=== PATIENT | female | born 1950 | race Caucasian/White ===

== ENCOUNTER 2023-09-24 12:09 | Inpatient (IN) | payer MEDICARE ==
[2023-09-24] MEDS ORDERED: TORAdol 30 mg Injection ONE (12:50)
[2023-09-24] MEDS: TORAdol 30 mg Injection IM ONE (12:51)
[2023-09-24] MEDS: TORAdol 30 mg Injection IV ONE (12:52)
--- NOTE | 2023-09-24 12:59 | ERPHSYRPT ---
- History of Present Illness Time Seen by Provider: 09/24/23 12:56 Source: patient, family Exam Limitations: no limitations Patient Subjective Stated Complaint: Fall- Right Triage Nursing Assessment: Patient brought into ED per w/c and transferred to bed with assist of 1. Patient A+O X3. Patient's skin pink, warm and dry. Patient complains of right hip/pelvic pain 10/10 when moving or ambulating. Patient fell as she was attempting to walk over a net that is low to the ground and landed on right side. Patient has small bruise noted to right hand palm. Small abrasion noted to right knee. Right leg noted to be shorter and external rotation. Physician History: atient complains of right hip/pelvic pain 10/10 when moving or ambulating. Patient fell as she was attempting to walk over a net that is low to the ground and landed on right side. Patient has small bruise noted to right hand palm. Small abrasion noted to right knee. Right leg noted to be shorter and external rotation. Denies any other injury Occurred: just prior to arrival Reason for Fall: tripped Injuries/Pain Location: pelvis, lower extremity Loss of Consciousness: no loss of consciousness Quality: sharpness Severity of Pain-Max: moderate Severity of Pain-Current: moderate Modifying Factors: Improves With: nothing Associated Symptoms (Fall): denies symptoms Body Map: 1 - area of pain Allergies/Adverse Reactions: benzonatate Allergy (Verified 09/24/23 12:31) meperidine [From Demerol] Allergy (Verified 09/24/23 12:31) Sulfa (Sulfonamide Antibiotics) Adverse Reaction (Verified 09/24/23 12:31) Home Medications: Amlodipine Besylate 1 tab PO DAILY 09/24/23 [History] Aspirin 81 gm Chew [Baby Aspirin 81 mg Chew] 1 tab PO DAILY 09/24/23 [History] Losartan Potassium 50 mg [Cozaar 50 MG] 1 tab PO DAILY 09/24/23 [History] Metoprolol Succinate 50 mg [Toprol Xl 50 MG] 1 tab PO DAILY 09/24/23 [History] Hx Influenza Vaccination/Date Given: Yes Hx Pneumococcal Vaccination/Date Given: Yes Immunizations Up to Date: Yes Travel Risk - International Travel Have you traveled outside of the country in past 3 weeks: No - Emerging Infectious Disease Are you exhibiting symptoms associated with any current EIDs: No - Review of Systems Constitutional: No Symptoms Eyes: No Symptoms Ears, Nose, & Throat: No Symptoms Respiratory: No Symptoms Cardiac: No Symptoms Abdominal/Gastrointestinal: No Symptoms Genitourinary Symptoms: No Symptoms Musculoskeletal: Fall, Joint Pain (right hip) Skin: No Symptoms Neurological: No Symptoms Psychological: No Symptoms Endocrine: No Symptoms Hematologic/Lymphatic: No Symptoms Immunological/Allergic: No Symptoms - Past Medical History Pertinent Past Medical History: Yes Neurological History: No Pertinent History ENT History: No Pertinent History Cardiac History: No Pertinent History Respiratory History: No Pertinent History Endocrine Medical History: No Pertinent History Musculoskeletal History: No Pertinent History GI Medical History: No Pertinent History History: No Pertinent History Psycho-Social History: No Pertinent History Female Reproductive Disorders: No Pertinent History - Past Surgical History Past Surgical History: Yes Neuro Surgical History: No Pertinent History Cardiac: No Pertinent History Respiratory: No Pertinent History Gastrointestinal: No Pertinent History Genitourinary: No Pertinent History Musculoskeletal: No Pertinent History Female Surgical History: Hysterectomy, Section Other Surgical History: C- Section X 2. Bladder tuck - Social History Smoking Status: Never smoker Exposure to second hand smoke: No Drug Use: none - Nursing Vital Signs Nursing Vital Signs: Initial Vital Signs Temperature 97.1 F 09/24/23 12:17 Pulse Rate 70 09/24/23 12:17 Respiratory Rate 18 09/24/23 12:17 Blood Pressure 173/89 09/24/23 12:17 O2 Sat by Pulse Oximetry 99 09/24/23 12:17 Pain Scale Pain Intensity 10 - [place] Coma Score Best Eye Response ([place]): (4) open spontaneously Best Verbal Response ([place]): (5) oriented Best Motor Response ([place]): (6) obeys commands [place] Total: 15 - Physical Exam General Appearance: no apparent distress, alert Head Injury: no evidence of injury Eye Exam: PERRL/EOMI ENT Exam: airway nml Neck Exam: normal inspection, No tenderness Respiratory/Chest Exam: normal breath sounds, No chest tenderness, No respiratory distress Cardiovascular Exam: normal heart sounds, regular rate/rhythm Gastrointestinal Exam: soft, No tenderness, No distention, No guarding, No ecchymosis Back Exam: normal inspection, No vertebral tenderness Extremity Exam: normal inspection, pelvis stable, limited range of motion (right hip), bony point tenderness, hip tenderness, pain with movement, weight bearing (unable), No deformities, No motor deficit, No pulse deficit, No pedal edema, No sensory deficit Neurologic Exam: alert, oriented x 3, cooperative, sensation nml, No motor deficits Skin Exam: normal color, warm, dry SpO2: 99 - Course Nursing assessment & vital signs reviewed: Yes - Radiology Exams Pelvis X-ray Interpretation: Interpreted by me (right pubic rami fracture displaced), Reviewed by me Hip X-ray Interpretation: Interpreted by me (no hip fracture), Reviewed by me Ordered Tests: Active Orders 24 hr Category Date Time Status HIPS KARLA(2V) INCL PEL IF DONE Stat Exams 09/24/23 12:38 Ordered KNEE (3 VIEWS) Stat Exams 09/24/23 12:38 Ordered Medication Summary Discontinued Medications Generic Name Dose Route Start Last Admin Trade Name Linnette PRN Reason Stop Dose Admin Ketorolac Tromethamine 60 mg 09/24/23 12:49 09/24/23 12:51 Ketorolac Tromethamine 30 Mg/Ml Inj IM 09/24/23 12:50 Not Given STAT ONE Ketorolac Tromethamine 30 mg 09/24/23 12:51 09/24/23 12:52 Ketorolac Tromethamine 30 Mg/Ml Inj IV 09/24/23 12:52 30 mg STAT ONE Administration Ketorolac Tromethamine Confirm 09/24/23 12:50 Ketorolac Tromethamine 30 Mg/Ml Inj Administered 09/24/23 12:51 Dose 30 mg .ROUTE .STK-MED ONE - Progress Progress: unchanged, pain not gone completely Discussed with Dr.: Other (Ortho shader and toner, Telehospitalist shader and toner) Counseled pt/family regarding: diagnosis, need for follow-up, rad results Medical Desision Making - Independent Historian Additional History obtained from: Spouse - Diagnostic Testing Diagnostic test were ordered, analyzed, and reviewed by me: Yes Radiological Interpretation: Interpreted by me, Reviewed by me - Risk of complications The pt has a mod risk of morbidity or mortality based on: Need for minor surgical intervention in patient with know risk factors - Departure Departure Disposition: Observation Clinical Impression: Fracture of right superior pubic ramus Qualifiers: Encounter type: initial encounter Fracture type: closed Qualified Code(s): S32.511A - Fracture of superior rim of right pubis, initial encounter for closed fracture Condition: Fair Critical Care Time: Yes Critical Care Time(excluding separately billable procedures): Critical 30-74 mins Referrals: ROLAN OMALLEY DO [Primary Care Provider] - Follow up/PCP as directed Instructions: Preventing falls in adults Additional Instructions: Discharge/Care Plan ZANE GARNICA was seen on 09/24/23 in the Emergency Room. The patient was counseled regarding Diagnosis,Lab results, Imaging studies, need for follow up and when to return to the Emergency Room. Prescriptions given: Discharge Note I have spoken with the patient and/or caregivers. I have explained the patient's condition, diagnosis and treatment plan based on the information available to me at this time. I have answered the patient's and/or caregiver's questions and addressed any concerns. The patient and/or caregivers have as good understanding of the patient's diagnosis, condition and treatment plan as can be expected at this point. The vital signs have been stable. The patient's condition is stable and appropriate for discharge from the emergency department. The patient will pursue further outpatient evaluation with the primary care physician or other designated or consulting physician as outlined in the discharge instructions. The patient and/or caregivers are agreeable to this plan of care and follow-up instructions have been explained in detail. The patient and/or caregivers have received these instruction. The patient/and or caregivers are aware that any significant change in condition or worsening of symptoms should prompt an immediate return to this or the closest emergency department or call 911. ZANE GARNICA was seen on 09/24/23 n the Emergency Room. At that time you were treated for an emergent condition, during your visit Laboratory, Radiology and/or other procedures may have been ordered. It is very important that you follow-up with your Primary Care Physician ROLAN OMALLEY DO within the next 24-48 hours to review your Emergency Room visit and the final results of testing that was ordered. Some test results such as Urine Cultures, Blood Cu ltures, and other cultures if ordered will not be finalized for 24-48 hours. If you do not have a Primary Care Provider please call the medical records department at [phone] ext [phone] to obtain a copy of your results or you may sign into our patient portal to obtain these results by visiting us @ [email or web address] and completing the following steps: 1. Click on the Patient Portal link 2. Click the Patient Self Enrollment Link to complete the enrollment form and entering your 3. Once the enrollment form is completed you will receive an email with a t emporary ID and password at the email address you provided. 4. Next choose a user name and password. Your user name must be at least 4 characters long and your password must be at least 4 characters long. 5. Choose a security question from the list and provide your answer to the question. If you already have signed into the Health Portal you may access your Health Care Information 09/01 by the following steps: 1. Login to our website @ [email or web address] 2. Enter your original user name and password. FAQS The [facility] Portal is an online tool that contains your Lab Results, Radiology Reports, Visit History, Discharge Instructions and Health Summary Lab and Radiology Results will not be available for 72 hours on the portal. The Portal is a secure site, passwords are encryted and URLs are re-written so they cannot be copied and pasted. You and authorized family members are the only ones who can access your Portal. Also there is a timeout feature that protects your information if you leave the Portal page open. If you have technical difficulty please use the Contact Us link on the page this will allow you to submit any questions you have regarding the Portal or you may contact the Medical Record Department at [phone] ext [phone].
[2023-09-24] MEDS ORDERED: Zofran 4 MG/2 ML VIAL ONE (13:33)
[2023-09-24] MEDS ORDERED: SUBLIMAZE 100 MCG/2 ML ONE (13:34)
[2023-09-24] MEDS: SUBLIMAZE 100 MCG/2 ML IV ONE (13:35)
[2023-09-24] MEDS: Zofran 4 MG/2 ML VIAL IV ONE (13:35)
--- NOTE | 2023-09-24 14:49 | PCM.HP ---
<LISA TIERNEY - Last Filed: 09/24/23 15:00> History of Present Illness - Chief Complaint Chief Complaint: right hip pain Date: 09/24/23 History of Present Illness: is a 72 year old female with a pmhx of HTN who presented to ED 09/24/23 with complaints of right hip pain after a ground level fall at home. Patient states she was at her sons house who has a volley ball net on his asphalt driveway and her foot got caught in the net and fell to her right side. She was unable to bear weight on the right side and her pain level was 10/10 prompting her to the ED. In ED her vitals were stable. Displaced right pubic rami fracture noted on imaging per ED physician read. Ortho has been consulted with recommendations for observation and pain control, no surgical intervention. She was given Fentanyl 100mcg and Toradol 30mg, which has relieved her pain for the most part. She does have pain with positional changes and with weight bearing. Denies fever,cough, sob, cp, abdominal pain, RODRIGUEZ, dizziness, N/V/D. - Review of Systems Constitutional: No Symptoms Eyes: No Symptoms Ears, Nose, & Throat: No Symptoms Respiratory: No Symptoms Cardiac: No Symptoms Abdominal/Gastrointestinal: No Symptoms Genitourinary Symptoms: No Symptoms Musculoskeletal: Joint Pain (Right hip) Skin: No Symptoms Neurological: No Symptoms Psychological: No Symptoms Endocrine: No Symptoms Hematologic/Lymphatic: No Symptoms Medications & Allergies Home Medications: Home Medication List Amlodipine Besylate 1 tab PO DAILY 09/24/23 [History Confirmed 09/24/23] Aspirin EC 81 mg [Ecotrin 81 mg] 81 mg PO DAILY 09/24/23 [History Confirmed 09/24/23] Losartan Potassium 50 mg [Cozaar 50 MG] 1 tab PO DAILY 09/24/23 [History Confirmed 09/24/23] Metoprolol Succinate 50 mg [Toprol Xl 50 MG] 1 tab PO DAILY 09/24/23 [History Confirmed 09/24/23] Allergies/Adverse Reactions: Allergies Allergy/AdvReac Type Severity Reaction Status Date / Time benzonatate Allergy Verified 09/24/23 12:31 meperidine [From Demerol] AdvReac Nausea and Verified 09/24/23 13:31 Vomiting Sulfa (Sulfonamide AdvReac Verified 09/24/23 12:31 Antibiotics) - Past Medical History Past Medical History: Yes Neurological History: No Pertinent History ENT History: No Pertinent History Cardiac History: No Pertinent History, Hypertension Respiratory History: No Pertinent History Endocrine Medical History: No Pertinent History Musculoskelatal History: No Pertinent History GI Medical History: No Pertinent History History: No Pertinent History Pyscho-Social History: No Pertinent History Reproductive Disorders: No Pertinent History - Past Surgical History Past Surgical History: Yes Neuro Surgical History: No Pertinent History Cardiac History: No Pertinent History Respiratory Surgery: No Pertinent History GI Surgical History: No Pertinent History Genitourinary Surgical Hx: No Pertinent History Musculskeletal Surgical Hx: No Pertinent History Female Surgical History: Hysterectomy, Section Other Surgical History: C- Section X 2. Bladder tuck - Social History Smoking Status: Never smoker Exposure to second hand smoke: No Alcohol: Occasionally Drug Use: none - Social Determinants of Health Will the patient participate in the screening: Yes Do you worry about a steady place to live?: No Do you have any problems with any of the following?: No known problems In the past 12 months,have you had to go without utilities?: No Have you or anyone in your house had to go without enough: No Transportation Issues: No Has anyone in your support network made you feel unsafe?: No - Physical Exam Vital Signs: Vital Signs - 24 hr Temp Pulse Resp BP Pulse Ox 09/24/23 14:23 68 18 130/67 97 09/24/23 13:36 66 18 158/91 98 09/24/23 13:18 99 09/24/23 12:17 97.1 F 70 18 173/89 99 General Appearance: no apparent distress Neurologic Exam: alert, oriented x 3, cooperative Eye Exam: PERRL/EOMI Ears, Nose, Throat Exam: normal ENT inspection Neck Exam: normal inspection Respiratory Exam: normal breath sounds, lungs clear Cardiovascular Exam: regular rate/rhythm, normal heart sounds Gastrointestinal/Abdomen Exam: soft, normal bowel sounds Pelvic Exam: not done Rectal Exam: deferred Back Exam: normal inspection Extremity Exam: limited range of motion (RLE), tenderness (RLE) Results - Radiology Impressions Radiology Exams & Impressions: Radiology Procedures Category Date Time Status HIPS KARLA(2V) INCL PEL IF DONE Stat Exams 09/24/23 12:38 Taken Assessment/Plan (1) Fracture of right superior pubic ramus Current Visit: Yes Status: Acute Qualifiers: Encounter type: initial encounter Fracture type: closed Qualified Code(s): S32.511A - Fracture of superior rim of right pubis, initial encounter for closed fracture Assessment & Plan: -Ortho consulted, appreciate recs -Pain control -NWB -Monitor CBC -PT eval Code(s): S32.511A - FRACTURE OF SUPERIOR RIM OF RIGHT PUBIS, INIT FOR CLOS FX (2) Hypertension Current Visit: Yes Status: Acute Assessment & Plan: -Stable, continue home meds Code(s): I10 - ESSENTIAL (PRIMARY) HYPERTENSION (3) Ground-level fall Current Visit: Yes Status: Acute Assessment & Plan: -see fracture Code(s): W18.30XA - FALL ON SAME LEVEL, UNSPECIFIED, INITIAL ENCOUNTER Telemedicine Encounter - Telemedicine Encounter Telemedicine Encounter: The entirety of this encounter was performed via Telemedicine" <ARELY GALLO - Last Filed: 09/24/23 20:54> History of Present Illness - Chief Complaint History of Present Illness: is a 72 year old female. - Physical Exam Vital Signs: Vital Signs - 24 hr Temp Pulse Resp BP Pulse Ox 09/24/23 19:34 97.3 F 66 18 143/68 96 09/24/23 14:49 97.7 F 67 18 131/60 92 L 09/24/23 14:23 68 18 130/67 97 09/24/23 13:36 66 18 158/91 98 09/24/23 13:18 99 09/24/23 12:17 97.1 F 70 18 173/89 99 Results - Labs Lab/Micro Results: Lab Results-Last 24 Hours 09/24/23 09/24/23 Range/Units 15:30 15:30 WBC 12.9 H (4.0-10.5) x10^3/uL RBC 3.82 L (4.1-5.4) x10^6/uL Hgb 11.9 L (12.0-16.0) g/dL Hct 35.7 (35-47) % MCV 93.5 (78-100) fL MCH 31.2 (26-32) pg MCHC 33.3 (32-36) g/dL RDW 12.1 (11.5-14.0) % Plt Count 243 (150-450) x10^3/uL MPV 10.9 (7.5-11.0) fL Gran % 79.7 H (36.0-66.0) % Immature Gran % (Auto) 0.7 H (0.00-0.4) % Nucleat RBC Rel Count 0.0 (0.00-0.1) % Eos # (Auto) 0.04 (0-0.5) x10^3/uL Immature Gran # (Auto) 0.09 H (0.00-0.03) x10^3u/L Absolute Lymphs (auto) 1.49 (1.0-4.6) x10^3/uL Absolute Monos (auto) 0.91 (0.0-1.3) x10^3/uL Absolute Nucleated RBC 0.00 (0.00-0.01) x10^3u/L Lymphocytes % 11.6 L (24.0-44.0) % Monocytes % 7.1 (0.0-12.0) % Eosinophils % 0.3 (0.00-5.0) % Basophils % 0.6 (0.0-0.4) % Absolute Granulocytes 10.26 H (1.4-6.9) x10^3/uL Basophils # 0.08 (0-0.4) x10^3/uL Sodium 133 L (135-145) mmol/L Potassium 3.8 (3.5-5.1) mmol/L Chloride 101 (98-107) mmol/L Carbon Dioxide 26 (22-30) mmol/L Anion Gap 10.2 (5-15) MEQ/L BUN 17 (7-17) mg/dL Creatinine 0.81 (0.52-1.04) mg/dL Estimated GFR 78.0 ML/MIN Glucose 109 H (74-106) mg/dL Calcium 9.1 (8.4-10.2) mg/dL Total Bilirubin 0.40 (0.2-1.3) mg/dL AST 25 (14-36) U/L ALT 26 (0-35) U/L Alkaline Phosphatase 69 (38-126) U/L Serum Total Protein 6.9 (6.3-8.2) g/dL Albumin 3.7 (3.5-5.0) g/dL - Radiology Impressions Radiology Exams & Impressions: Radiology Procedures Category Date Time Status HIPS KRALA(2V) INCL PEL IF DONE Stat Exams 09/24/23 12:38 Completed Telemedicine Encounter - Telemedicine Encounter Telemedicine Encounter: The entirety of this encounter was performed via Telemedicine" YANIRA Encounter - YANIRA Encounter Attestation YANIRA Encounter Attestation: "IhroselynpersonallyskiarraandexZANE Delgadillo andhavediscussed pertinent aspects of their care with Lisa Foley agree with the history, physical exam (any modifications based on my personal exam will be noted below), assessment, and plan as outlined in original note. Please see immediately below for my summary of findings and additional assessment and plan along with any meaningful corrections/explanations to the Subjective/Objective portions of the YANIRA note will be noted." My portion of the encounter took place via telemedicine. -Patient with fall and right pubic ramus fracture with severe pain and inability to ambulate. Non operative management per ortho. Admitted for pain control and PT/OT eval.
[2023-09-24] MEDS ORDERED: SUBLIMAZE 100 MCG/2 ML IV PRN (14:54)
[2023-09-24 15:34] LABS: Absolute Neutrophil Ct (ANC) 10.26 x10^3/uL (1.4-6.9); BASOPHIL % 0.6 % (0.0-0.4); Basophil (Absolute #) 0.08 x10^3/uL (0-0.4); Eosinophil % 0.3 % (0.00-5.0); Eosinophil (Absolute #) 0.04 x10^3/uL (0-0.5); Hematocrit 35.7 % (35-47); Hemoglobin 11.9 g/dL (12.0-16.0); IMMATURE GRAN # 0.09 x10^3u/L (0.00-0.03); IMMATURE GRAN % 0.7 % (0.00-0.4); Lymphocyte (Absolute #) 1.49 x10^3/uL (1.0-4.6); Lymphocytes % 11.6 % (24.0-44.0); Mean Cell Volume 93.5 fL (78-100); Mean Corpuscular Hemoglobin 31.2 pg (26-32); Mean Corpuscular Hgb Concent. 33.3 g/dL (32-36); Mean Platelet Volume 10.9 fL (7.5-11.0); Monocyte (Absolute #) 0.91 x10^3/uL (0.0-1.3); Monocytes % 7.1 % (0.0-12.0); Neutrophil % 79.7 % (36.0-66.0); Platelet Count 243 x10^3/uL (150-450); Red Blood Count 3.82 x10^6/uL (4.1-5.4); Red Cell Distribution Width 12.1 % (11.5-14.0); White Blood Count 12.9 x10^3/uL (4.0-10.5)
[2023-09-24 15:46] LABS: ALBUMIN 3.7 g/dL (3.5-5.0); ANION GAP 10.2 MEQ/L (5-15); BILIRUBIN,TOTAL 0.4 mg/dL (0.2-1.3); Calcium 9.1 mg/dL (8.4-10.2); Creatinine 1 0.81 mg/dL (0.52-1.04); Potassium 3.8 mmol/L (3.5-5.1); Total Protein 6.9 g/dL (6.3-8.2)
[2023-09-24] MEDS: NORCO 5/325 MG PO PRN (17:58)
--- NOTE | 2023-09-24 19:32 | XRAY ---
Indication: Pain following fall. Comparison: None AP pelvis and 2 view left and right hip demonstrates mildly displaced right pubic symphysis fracture. Elsewhere osteopenia, mild lower lumbar degenerative changes, and pubic symphysis tacks. Comment: Fracture not reported by interpreting ER clinician. Telephone report was given to Dr. Orta at 1925 hrs. on September 24, 2023.
[2023-09-24] MEDS: Hydromorphone 1 mg/ml Injection IV PRN (20:31)
[2023-09-24] MEDS: Zofran 4 MG/2 ML VIAL IV PRN (20:31)
[2023-09-25 04:32] LABS: Absolute Neutrophil Ct (ANC) 5.64 x10^3/uL (1.4-6.9); BASOPHIL % 0.8 % (0.0-0.4); Basophil (Absolute #) 0.07 x10^3/uL (0-0.4); Eosinophil (Absolute #) 0.17 x10^3/uL (0-0.5); Hematocrit 33.9 % (35-47); Hemoglobin 11.2 g/dL (12.0-16.0); IMMATURE GRAN # 0.04 x10^3u/L (0.00-0.03); IMMATURE GRAN % 0.5 % (0.00-0.4); Lymphocytes % 21.9 % (24.0-44.0); Mean Cell Volume 93.9 fL (78-100); Mean Platelet Volume 11.2 fL (7.5-11.0); Monocyte (Absolute #) 0.87 x10^3/uL (0.0-1.3); Neutrophil % 64.8 % (36.0-66.0); Platelet Count 233 x10^3/uL (150-450); Red Blood Count 3.61 x10^6/uL (4.1-5.4); Red Cell Distribution Width 12.2 % (11.5-14.0); White Blood Count 8.7 x10^3/uL (4.0-10.5)
[2023-09-25 04:52] LABS: ALBUMIN 3.5 g/dL (3.5-5.0); ANION GAP 7.6 MEQ/L (5-15); BILIRUBIN,TOTAL 0.4 mg/dL (0.2-1.3); Creatinine 1 0.74 mg/dL (0.52-1.04); Potassium 3.9 mmol/L (3.5-5.1); Total Protein 6.5 g/dL (6.3-8.2)
[2023-09-25] MEDS: Dextrose 5%-NS IV Solution 1000 ML 1,000 ML IV SCH (08:23)
--- NOTE | 2023-09-25 09:38 | PCM.NOTE ---
Date and Time: 09/25/23 0929 Subjective Assessment: is a 72 year old female with a pmhx of HTN who presented to ED 09/24/23 with complaints of right hip pain after a ground level fall at home. Patient states she was at her sons house who has a volley ball net on his asphalt driveway and her foot got caught in the net and fell to her right side. She was unable to bear weight on the right side and her pain level was 10/10 prompting her to the ED. She has a displaced right pubic rami fracture noted on imaging per ED physician read. Ortho has been consulted with recommendations for observation and pain control, no surgical intervention. She does have pain with positional changes and with weight bearing. She is going to work with PT/OT today. She has a walker she is borrowing from a friend and it will not be available until tomorrow. Discussed pt case with Ortho. They recommend f/u in 2 -3 weeks, pain control, and PT/OT eval. Will need OP PT. She denies CP, SOB, Abd. pain, N/V/D. - Review of Systems Constitutional: No Fever, No Chills Eyes: No Symptoms Ears, Nose, & Throat: No Symptoms Respiratory: No Cough, No Short Of Breath Cardiac: No Chest Pain, No Edema, No Syncope Abdominal/Gastrointestinal: No Abdominal Pain, No Nausea, No Vomiting, No Diarrhea Genitourinary Symptoms: No Dysuria Musculoskeletal: Other (pelvic pain, RLE weakness), No Back Pain, No Neck Pain Skin: No Rash Neurological: No Dizziness, No Focal Weakness, No Sensory Changes Psychological: No Symptoms Endocrine: No Symptoms Hematologic/Lymphatic: No Symptoms Immunological/Allergic: No Symptoms Objective Exam General Appearance: no apparent distress, alert Neurologic Exam: alert, oriented x 3, cooperative, normal mood/affect, nml cerebellar function, sensation nml, No motor deficits Skin Exam: normal color, warm, dry Eye Exam: PERRL, EOMI, eyes nml inspection Ears, Nose, Throat Exam: normal ENT inspection, pharynx normal, moist mucous membranes Neck Exam: normal inspection, non-tender, supple, full range of motion Respiratory Exam: normal breath sounds, lungs clear, No respiratory distress Cardiovascular Exam: regular rate/rhythm, normal heart sounds, normal peripheral pulses Gastrointestinal/Abdomen Exam: soft, No tenderness, No mass Extremity Exam: normal inspection, normal range of motion, limited range of motion (RLE), tenderness (pelvis) Back Exam: normal inspection, normal range of motion, No CVA tenderness, No vertebral tenderness Pelvic Exam: deferred Rectal Exam: deferred Objective Data Vital Signs: Vital Signs - 24 hr Temp Pulse Resp BP Pulse Ox 09/25/23 06:52 97.5 F 63 18 126/71 96 09/25/23 04:00 97.8 F 62 16 137/76 93 L 09/24/23 23:57 97.8 F 62 18 132/72 96 09/24/23 19:34 97.3 F 66 18 143/68 96 09/24/23 14:49 97.7 F 67 18 131/60 92 L 09/24/23 14:23 68 18 130/67 97 09/24/23 13:36 66 18 158/91 98 09/24/23 13:18 99 09/24/23 12:17 97.1 F 70 18 173/89 99 Pain Assessment - Last Documented Pain Intensity 9 Pain Scale Used 0-10 Pain Scale Intake and Output: Intake & Output 09/22/23 09/23/23 09/24/23 09/25/23 11:59 11:59 11:59 11:59 Intake Total 3140 Output Total 1810 Balance 1330 Weight 75.3 kg Lab Results: Lab Results-Last 24 Hours 09/24/23 09/24/23 09/25/23 Range/Units 15:30 15:30 04:05 WBC 12.9 H 8.7 (4.0-10.5) x10^3/uL RBC 3.82 L 3.61 L (4.1-5.4) x10^6/uL Hgb 11.9 L 11.2 L (12.0-16.0) g/dL Hct 35.7 33.9 L (35-47) % MCV 93.5 93.9 (78-100) fL MCH 31.2 31.0 (26-32) pg MCHC 33.3 33.0 (32-36) g/dL RDW 12.1 12.2 (11.5-14.0) % Plt Count 243 233 (150-450) x10^3/uL MPV 10.9 11.2 H (7.5-11.0) fL Gran % 79.7 H 64.8 (36.0-66.0) % Immature Gran % (Auto) 0.7 H 0.5 H (0.00-0.4) % Nucleat RBC Rel Count 0.0 0.0 (0.00-0.1) % Eos # (Auto) 0.04 0.17 (0-0.5) x10^3/uL Immature Gran # (Auto) 0.09 H 0.04 H (0.00-0.03) x10^3u/L Absolute Lymphs (auto) 1.49 1.90 (1.0-4.6) x10^3/uL Absolute Monos (auto) 0.91 0.87 (0.0-1.3) x10^3/uL Absolute Nucleated RBC 0.00 0.00 (0.00-0.01) x10^3u/L Lymphocytes % 11.6 L 21.9 L (24.0-44.0) % Monocytes % 7.1 10.0 (0.0-12.0) % Eosinophils % 0.3 2.0 (0.00-5.0) % Basophils % 0.6 0.8 (0.0-0.4) % Absolute Granulocytes 10.26 H 5.64 (1.4-6.9) x10^3/uL Basophils # 0.08 0.07 (0-0.4) x10^3/uL Sodium 133 L (135-145) mmol/L Potassium 3.8 (3.5-5.1) mmol/L Chloride 101 (98-107) mmol/L Carbon Dioxide 26 (22-30) mmol/L Anion Gap 10.2 (5-15) MEQ/L BUN 17 (7-17) mg/dL Creatinine 0.81 (0.52-1.04) mg/dL Estimated GFR 78.0 ML/MIN Glucose 109 H (74-106) mg/dL Calcium 9.1 (8.4-10.2) mg/dL Total Bilirubin 0.40 (0.2-1.3) mg/dL AST 25 (14-36) U/L ALT 26 (0-35) U/L Alkaline Phosphatase 69 (38-126) U/L Serum Total Protein 6.9 (6.3-8.2) g/dL Albumin 3.7 (3.5-5.0) g/dL 09/25/23 Range/Units 04:05 WBC (4.0-10.5) x10^3/uL RBC (4.1-5.4) x10^6/uL Hgb (12.0-16.0) g/dL Hct (35-47) % MCV (78-100) fL MCH (26-32) pg MCHC (32-36) g/dL RDW (11.5-14.0) % Plt Count (150-450) x10^3/uL MPV (7.5-11.0) fL Gran % (36.0-66.0) % Immature Gran % (Auto) (0.00-0.4) % Nucleat RBC Rel Count (0.00-0.1) % Eos # (Auto) (0-0.5) x10^3/uL Immature Gran # (Auto) (0.00-0.03) x10^3u/L Absolute Lymphs (auto) (1.0-4.6) x10^3/uL Absolute Monos (auto) (0.0-1.3) x10^3/uL Absolute Nucleated RBC (0.00-0.01) x10^3u/L Lymphocytes % (24.0-44.0) % Monocytes % (0.0-12.0) % Eosinophils % (0.00-5.0) % Basophils % (0.0-0.4) % Absolute Granulocytes (1.4-6.9) x10^3/uL Basophils # (0-0.4) x10^3/uL Sodium 128 L (135-145) mmol/L Potassium 3.9 (3.5-5.1) mmol/L Chloride 96 L (98-107) mmol/L Carbon Dioxide 29 (22-30) mmol/L Anion Gap 7.6 (5-15) MEQ/L BUN 17 (7-17) mg/dL Creatinine 0.74 (0.52-1.04) mg/dL Estimated GFR 87.0 ML/MIN Glucose 112 H (74-106) mg/dL Calcium 9.0 (8.4-10.2) mg/dL Total Bilirubin 0.40 (0.2-1.3) mg/dL AST 24 (14-36) U/L ALT 22 (0-35) U/L Alkaline Phosphatase 70 (38-126) U/L Serum Total Protein 6.5 (6.3-8.2) g/dL Albumin 3.5 (3.5-5.0) g/dL Radiology Exams: Radiology Procedures Category Date Time Status HIPS KARLA(2V) INCL PEL IF DONE Stat Exams 09/24/23 12:38 Completed Assessment/Plan (1) Fracture of right superior pubic ramus Current Visit: Yes Status: Acute Qualifiers: Encounter type: initial encounter Fracture type: closed Qualified Code(s): S32.511A - Fracture of superior rim of right pubis, initial encounter for closed fracture Assessment & Plan: -Ortho consulted- discussed and agree with plan of care - Narcotic pain control- PRN, PO and IV - PT/OT eval - F/u 2-3 weeks OP with ortho - Hip/Pelvis XR: AP pelvis and 2 view left and right hip demonstrates mildly displaced right pubic symphysis fracture. Elsewhere osteopenia, mild lower lumbar degenerative changes, and pubic symphysis tacks. - D/C Mirza- placed in ER for required immobilization from trauma. - Apply ice pack PRN - weight bearing restriction per ortho - gait training BID per ortho Code(s): S32.511A - FRACTURE OF SUPERIOR RIM OF RIGHT PUBIS, INIT FOR CLOS FX (2) Ground-level fall Current Visit: Yes Status: Acute Assessment & Plan: - see above plan for Fracture of right superior pubic ramus Code(s): W18.30XA - FALL ON SAME LEVEL, UNSPECIFIED, INITIAL ENCOUNTER (3) Hyponatremia Current Visit: Yes Status: Chronic Assessment & Plan: - Pt reports chronic hyponatremia- likely SIADH - Na+ 128 - started D5NS @ 85 ml/hr - labs ordered, urine os and sodium, serum os, uric acid, and ADH - fluid restriction 1500 Code(s): E87.1 - HYPO-OSMOLALITY AND HYPONATREMIA (4) Hypertension Current Visit: Yes Status: Acute Assessment & Plan: -Stable, continue home meds VTE: SCD PPI: protonix Next of Kin: D/C plan: tomorrow Code status: full Code(s): I10 - ESSENTIAL (PRIMARY) HYPERTENSION
[2023-09-25] MEDS: Cozaar 50 MG PO SCH (09:48)
[2023-09-25] MEDS: Toprol Xl 50 MG PO SCH (09:48)
[2023-09-25] MEDS: NORVASC 5 MG PO SCH (09:49)
[2023-09-25] MEDS ORDERED: ENOXAPARIN SODIUM SQ SCH (10:00)
[2023-09-25] MEDS: Protonix 20MG Tablet PO SCH (12:26)
[2023-09-25] MEDS: Compazine 10 MG/2 ML IV PRN (16:42)
[2023-09-26 04:22] LABS: Absolute Neutrophil Ct (ANC) 12.41 x10^3/uL (1.4-6.9); BASOPHIL % 0.2 % (0.0-0.4); Basophil (Absolute #) 0.03 x10^3/uL (0-0.4); Eosinophil (Absolute #) 0 x10^3/uL (0-0.5); Hematocrit 34.4 % (35-47); Hemoglobin 11.8 g/dL (12.0-16.0); IMMATURE GRAN # 0.04 x10^3u/L (0.00-0.03); IMMATURE GRAN % 0.3 % (0.00-0.4); Lymphocyte (Absolute #) 0.52 x10^3/uL (1.0-4.6); Lymphocytes % 3.9 % (24.0-44.0); Mean Cell Volume 92.2 fL (78-100); Mean Corpuscular Hemoglobin 31.6 pg (26-32); Mean Corpuscular Hgb Concent. 34.3 g/dL (32-36); Monocyte (Absolute #) 0.49 x10^3/uL (0.0-1.3); Monocytes % 3.6 % (0.0-12.0); Platelet Count 218 x10^3/uL (150-450); Red Blood Count 3.73 x10^6/uL (4.1-5.4); White Blood Count 13.5 x10^3/uL (4.0-10.5)
[2023-09-26 04:35] LABS: ALBUMIN 3.2 g/dL (3.5-5.0); BILIRUBIN,TOTAL 1.3 mg/dL (0.2-1.3); Calcium 8.9 mg/dL (8.4-10.2); Creatinine 1 0.62 mg/dL (0.52-1.04); EST GLOMERULAR FILTRATION RATE 95.7 ML/MIN; Potassium 3.9 mmol/L (3.5-5.1); Total Protein 6.3 g/dL (6.3-8.2)
[2023-09-26 05:11] LABS: Slide Review 1 YES
--- NOTE | 2023-09-26 07:51 | CONS ---
CONSULT DATE: 09/25/2023 HISTORY: The patient seen and examined and her chart was reviewed. Miss Briana Ortiz is a 72-year-old female who tripped at home over equipment and fell sustaining an injury to her right pelvis. She was seen in the ER where superior and inferior pubic rami fractures were noted on the right and due to her pain; she was admitted for observation and pain control. She sustained no other injuries in the fall. She denies any numbness or tingling. PAST MEDICAL HISTORY: She has a medical history which is significant for hypertension, hypercholesterolemia. PAST SURGICAL HISTORY: She has a pertinent surgical history for history of two bladder slings. ALLERGIES: DEMEROL. SULFA ANTIBIOTICS. BENZONATATE. MEDICATIONS: She is currently taking Cozaar 50 mg daily, Norvasc 5 mg daily, Toprol XL 50 mg daily and baby aspirin a day. PHYSICAL EXAMINATION: Physical examination demonstrates that V[employer]ER is intact to both lower extremities. There is minimal tenderness to palpation along the right SI joint. No tenderness along the left SI joint. No tenderness in the lower lumbar spine. She does have good range of motion of both hips. She has tenderness to palpation over right superior and inferior pubic rami. No tenderness over the left pubic rami. Pulses are 2/4 at the dorsalis pedis and posterior tibia. Motor strength is 5/5. Sensory is intact to light touch. LAB DATA AND TESTS: X-rays dated 09/24/2023 showed minimally displaced right superior and inferior pubic rami fractures. There is also noted some degenerative changes in the lower lumbar spine. No evidence of fracture of the hip or acetabulum. IMPRESSION: Right superior and inferior pubic rami fractures. RECOMMENDATION AND PLAN: 1) The patient should have a course of physical therapy for gait training. Weight bearing as tolerated. 2) The patient should be fitted for a walker and wheelchair to have at home. 3) The patient should be observed for an ileus. 4) Follow up in the orthopedic clinic in three to four weeks. Thank you for allowing me to see this patient and participate in her care.
--- NOTE | 2023-09-26 08:08 | PCM.NOTE ---
Date and Time: 09/26/23801 Subjective Assessment: 09/25/23 is a 72 year old female with a pmhx of HTN who presented to ED 09/24/23 with complaints of right hip pain after a ground level fall at home. Patient states she was at her sons house who has a volley ball net on his asphalt driveway and her foot got caught in the net and fell to her right side. She was unable to bear weight on the right side and her pain level was 10/10 prompting her to the ED. She has a displaced right pubic rami fracture noted on imaging per ED physician read. Ortho has been consulted with recommendations for observation and pain control, no surgical intervention. She does have pain with positional changes and with weight bearing. She is going to work with PT/OT to day. She has a walker she is borrowing from a friend and it will not be available until tomorrow. Discussed pt case with Ortho. They recommend f/u in 2 -3 weeks, pain control, and PT/OT eval. Will need OP PT. She denies CP, SOB, Abd. pain, N/V/D. 09/26/23 Pt resting in bed. She is not feeling well this morning. She vomited twice and has abd bloating. She states she is vomiting because she is just unable to keep anything down. No nausea or pelvic or abd pain. KUB ordered for further eval. She is at high risk for ileus. Nursing called overnight provider and asked that alcantara cath remain d/t n/v and pain. Discussed with pt the need for alcantara to be d/c'd. She will work with PT and OT again today. She does not require immobilization and therefore needs to have removed today. Discussed with nursing as well. She can use a bed pain or bedside commode. She denies CP, SOB, abd. pain. - Review of Systems Constitutional: No Fever, No Chills Eyes: No Symptoms Ears, Nose, & Throat: No Symptoms Respiratory: No Cough, No Short Of Breath Cardiac: No Chest Pain, No Edema, No Syncope Abdominal/Gastrointestinal: Vomiting, Constipation, No Diarrhea Genitourinary Symptoms: No Dysuria Musculoskeletal: No Back Pain, No Neck Pain Skin: No Rash Neurological: No Dizziness, No Focal Weakness, No Sensory Changes Psychological: No Symptoms Endocrine: No Symptoms Hematologic/Lymphatic: No Symptoms Immunological/Allergic: No Symptoms Objective Exam General Appearance: no apparent distress, alert Neurologic Exam: alert, oriented x 3, cooperative, normal mood/affect, nml cere bellar function, sensation nml, No motor deficits Skin Exam: normal color, warm, dry Eye Exam: PERRL, EOMI, eyes nml inspection Ears, Nose, Throat Exam: normal ENT inspection, pharynx normal, moist mucous membranes Neck Exam: normal inspection, non-tender, supple, full range of motion Respiratory Exam: normal breath sounds, lungs clear, No respiratory distress Cardiovascular Exam: regular rate/rhythm, normal heart sounds Gastrointestinal/Abdomen Exam: soft, distention, No tenderness, No mass Extremity Exam: normal inspection, normal range of motion Back Exam: normal inspection, normal range of motion, No CVA tenderness, No vertebral tenderness Pelvic Exam: deferred Rectal Exam: deferred Objective Data Vital Signs: Vital Signs - 24 hr Temp Pulse Resp BP Pulse Ox 09/26/23 06:39 98.7 F 85 20 121/60 94 L 09/26/23 04:00 99.1 F 72 16 125/58 91 L 09/26/23 01:00 91 L 09/25/23 23:52 97.6 F 73 16 141/65 90 L 09/25/23 18:42 98.6 F 74 16 161/67 92 L 09/25/23 16:00 97.5 F 64 16 165/72 96 09/25/23 11:20 97.5 F 72 16 145/63 99 Pain Assessment - Last Documented Pain Intensity 6 Pain Scale Used 0-10 Pain Scale Intake and Output: Intake & Output 09/23/23 09/24/23 09/25/23 09/26/23 11:59 11:59 11:59 11:59 Intake Total 3140 1564 Output Total 1810 300 Balance 1330 1264 Weight 75.3 kg Lab Results: Lab Results-Last 24 Hours 09/25/23 09/26/23 09/26/23 Range/Units 15:20 04:15 04:15 WBC 13.5 H (4.0-10.5) x10^3/uL RBC 3.73 L (4.1-5.4) x10^6/uL Hgb 11.8 L (12.0-16.0) g/dL Hct 34.4 L (35-47) % MCV 92.2 (78-100) fL MCH 31.6 (26-32) pg MCHC 34.3 (32-36) g/dL RDW 12.0 (11.5-14.0) % Plt Count 218 (150-450) x10^3/uL MPV 11.0 (7.5-11.0) fL Gran % 92.0 H (36.0-66.0) % Immature Gran % (Auto) 0.3 (0.00-0.4) % Nucleat RBC Rel Count 0.0 (0.00-0.1) % Eos # (Auto) 0 (0-0.5) x10^3/uL Immature Gran # (Auto) 0.04 H (0.00-0.03) x10^3u/L Absolute Lymphs (auto) 0.52 L (1.0-4.6) x10^3/uL Absolute Monos (auto) 0.49 (0.0-1.3) x10^3/uL Absolute Nucleated RBC 0.00 (0.00-0.01) x10^3u/L Lymphocytes % 3.9 L (24.0-44.0) % Monocytes % 3.6 (0.0-12.0) % Eosinophils % 0.0 (0.00-5.0) % Basophils % 0.2 (0.0-0.4) % Absolute Granulocytes 12.41 H (1.4-6.9) x10^3/uL Basophils # 0.03 (0-0.4) x10^3/uL Sodium 127 L (135-145) mmol/L Potassium 3.9 (3.5-5.1) mmol/L Chloride 95 L (98-107) mmol/L Carbon Dioxide 24 (22-30) mmol/L Anion Gap 11.0 (5-15) MEQ/L BUN 12 (7-17) mg/dL Creatinine 0.62 (0.52-1.04) mg/dL Estimated GFR 95.7 ML/MIN Glucose 147 H (74-106) mg/dL Uric Acid (2.6-6.0) mg/dL Calcium 8.9 (8.4-10.2) mg/dL Total Bilirubin 1.30 (0.2-1.3) mg/dL AST 22 (14-36) U/L ALT 22 (0-35) U/L Alkaline Phosphatase 67 (38-126) U/L Serum Total Protein 6.3 (6.3-8.2) g/dL Albumin 3.2 L (3.5-5.0) g/dL Urine Sodium 16 L (30-90) mmol/L Slides for Path Review YES 09/26/23 Range/Units 04:15 WBC (4.0-10.5) x10^3/uL RBC (4.1-5.4) x10^6/uL Hgb (12.0-16.0) g/dL Hct (35-47) % MCV (78-100) fL MCH (26-32) pg MCHC (32-36) g/dL RDW (11.5-14.0) % Plt Count (150-450) x10^3/uL MPV (7.5-11.0) fL Gran % (36.0-66.0) % Immature Gran % (Auto) (0.00-0.4) % Nucleat RBC Rel Count (0.00-0.1) % Eos # (Auto) (0-0.5) x10^3/uL Immature Gran # (Auto) (0.00-0.03) x10^3u/L Absolute Lymphs (auto) (1.0-4.6) x10^3/uL Absolute Monos (auto) (0.0-1.3) x10^3/uL Absolute Nucleated RBC (0.00-0.01) x10^3u/L Lymphocytes % (24.0-44.0) % Monocytes % (0.0-12.0) % Eosinophils % (0.00-5.0) % Basophils % (0.0-0.4) % Absolute Granulocytes (1.4-6.9) x10^3/uL Basophils # (0-0.4) x10^3/uL Sodium (135-145) mmol/L Potassium (3.5-5.1) mmol/L Chloride (98-107) mmol/L Carbon Dioxide (22-30) mmol/L Anion Gap (5-15) MEQ/L BUN (7-17) mg/dL Creatinine (0.52-1.04) mg/dL Estimated GFR ML/MIN Glucose (74-106) mg/dL Uric Acid 2.8 (2.6-6.0) mg/dL Calcium (8.4-10.2) mg/dL Total Bilirubin (0.2-1.3) mg/dL AST (14-36) U/L ALT (0-35) U/L Alkaline Phosphatase (38-126) U/L Serum Total Protein (6.3-8.2) g/dL Albumin (3.5-5.0) g/dL Urine Sodium (30-90) mmol/L Slides for Path Review Radiology Exams: Radiology Procedures Category Date Time Status HIPS KARLA(2V) INCL PEL IF DONE Stat Exams 09/24/23 12:38 Completed KUB Routine Exams 09/26/23 07:26 Ordered Multi-Disciplinary Progress Notes: Multi-Disciplinary Progress Notes 09/25/23 11:32 Case Management Note by Светлана Newman S/W PATIENT AFTER WORKING WITH PHYSICAL THERAPY. PATIENT WISHES TO BORROW A WHEELED WALKER FROM A FRIEND AND WILL HAVE IT TOMORROW. PATIENT REQUESTING A TRANSPORT CHAIR- PATIENT NOTIFIED THAT SHE DOES NOT QUALIFY FOR A TRANSPORT CHAIR SHE CAN SELF PROPEL IN A REGULAR WHEELCHAIR. OFFERED TO ORDER A REGULAR LIGHT WEIGHT CHAIR FOR PATIENT- SHE DECLINED. SHE REPORTS SHE HAS A FRIEND THAT SHE CAN BORROW ONE FROM. WE ALSO DISCUSSED HHC VS OTPT. PATIENT MORE APPROPRIATE FOR HHC AT THIS TIME. SHE WAS GIVEN A LIST OF PROVIDERS TO LOOK OVER. Initialized on 09/25/23 11:32 - END OF NOTE Assessment/Plan (1) Fracture of right superior pubic ramus Current Visit: Yes Status: Acute Qualifiers: Encounter type: initial encounter Fracture type: closed Qualified Code(s): S32.511A - Fracture of superior rim of right pubis, initial encounter for closed fracture Code(s): S32.511A - FRACTURE OF SUPERIOR RIM OF RIGHT PUBIS, INIT FOR CLOS FX (2) Ground-level fall Current Visit: Yes Status: Acute Code(s): W18.30XA - FALL ON SAME LEVEL, UNSPECIFIED, INITIAL ENCOUNTER (3) Hyponatremia Current Visit: Yes Status: Chronic Code(s): E87.1 - HYPO-OSMOLALITY AND HYPONATREMIA (4) Hypertension Current Visit: Yes Status: Acute Assessment & Plan: (1) Fracture of right superior pubic ramus Current Visit: Yes Status: Acute Qualifiers: Encounter type: initial encounter Fracture type: closed Qualified Co de(s): S32.511A - Fracture of superior rim of right pubis, initial encounter for closed fracture Assessment & Plan: -Ortho consulted- discussed and agree with plan of care - Narcotic pain control- PRN, PO and IV - PT/OT eval - F/u 2-3 weeks OP with ortho - Hip/Pelvis XR: AP pelvis and 2 view left and right hip demonstrates mildly displaced right pubic symphysis fracture. Elsewhere osteopenia, mild lower lumbar degenerative changes, and pubic symphysis tacks. - D/C Alcantara- placed in ER for required immobilization from trauma. - Apply ice pack PRN - weight bearing restriction per ortho - gait training BID per ortho 09/25 - alcantara d/c'd today instead of yesterday- see nursing notes for need - pain improved- d/c Dilaudid - PT/OT Code(s): S32.511A - FRACTURE OF SUPERIOR RIM OF RIGHT PUBIS, INIT FOR CLOS FX (2) Ground-level fall Current Visit: Yes Status: Acute Assessment & Plan: - see above plan for Fracture of right superior pubic ramus Code(s): W18.30XA - FALL ON SAME LEVEL, UNSPECIFIED, INITIAL ENCOUNTER (3) Hyponatremia Current Visit: Yes Status: Chronic Assessment & Plan: - Pt reports chronic hyponatremia- likely SIADH - Na+ 128 - started D5NS @ 85 ml/hr - labs ordered, urine os and sodium, serum os, uric acid, and ADH - fluid restriction 1500 09/25 - Na+ 127 - +vomiting, zofran and compazine PRN - clear liquid diet - Continue IVF Code(s): E87.1 - HYPO-OSMOLALITY AND HYPONATREMIA (4) Hypertension Current Visit: Yes Status: Acute Assessment & Plan: -Stable, continue home meds Code(s): I10 - ESSENTIAL (PRIMARY) HYPERTENSION (5) Constipation Current Visit: Yes Status: Acute Assessment & Plan: - KUB XR KUB demonstrates mild air distended small bowel loops and mild diffuse colonic fecal debris. Normal rectal bowel gas. Solid organs unremarkable. No large free air. Osseous structures demonstrates osteopenia and mildly displaced comminuted right pubic symphysis/rami acute fracture - PRN Stool softeners gave - encouraged activity Code(s): K59.00 - CONSTIPATION, UNSPECIFIED (6) UTI (urinary tract infection) Current Visit: Yes Status: Acute Assessment & Plan: - Alcantara placed on 09/23 d/t required immobilization for trauma from fall until ortho assessment. - alcantara removed today - + uti seen on UA results - culture pending - Rocephin started IV. - + foul smelling urine. VTE: SCD PPI: protonix Next of Kin: D/C plan: tomorrow Code status: full Code(s): N39.0 - URINARY TRACT INFECTION, SITE NOT SPECIFIED
--- NOTE | 2023-09-26 08:52 | XRAY ---
Indication: Abdomen pain and vomiting. No bowel movement 5 days. Comparison: None KUB demonstrates mild air distended small bowel loops and mild diffuse colonic fecal debris. Normal rectal bowel gas. Solid organs unremarkable. No large free air. Osseous structures demonstrates osteopenia and mildly displaced comminuted right pubic symphysis/rami acute fracture.
[2023-09-26] MEDS: Docusate Sodium 100 MG PO PRN (09:28)
[2023-09-26 10:01] LABS: Appearance Cloudy (Clear); Bacteria Many /HPF (None Seen); Bilirubin Small (Negative); Blood Large (Negative); Epithelial Cells None Seen /HPF (None Seen); Glucose, Urine Negative (Negative); Ketones Negative (Negative); Leukocyte Esterase Moderate (Negative); Nitrite Positive (Negative); Ph 5.5 (4.6-8.0); Protein,Urine Dip 30 (Negative); RBC 51-100 /HPF (0-5); Specific Gravity 1.025 (1.005-1.030); WBC >100 /HPF (0-5)
[2023-09-26 10:11] LABS: ADD URINE CULTURE? ORDERED SEPARATELY (NO)
[2023-09-26] MEDS: ROCEPHIN 1 GM / 100 ML NaCl 1 GM/100 ML IVPB IV SCH (10:41)
--- NOTE | 2023-09-26 11:57 | XRAY ---
Indication: [facility] placement. Comparison: None Portable chest demonstrates small left costophrenic angle calcified granuloma. No focal infiltrate, consolidation, or large effusion. Heart not enlarged. Bony thorax intact with osteopenia and mild levoscoliosis. Impression: Nonacute chest with chronic features.
[2023-09-26] MEDS: Dextrose 5%-NS IV Solution 1000 ML 1,000 ML IV SCH (20:31)
[2023-09-26] MEDS: Mylicon 80MG PO PRN (20:37)
[2023-09-26] MEDS ORDERED: DUONEB 0.5-3 MG/3 ml Neb IH ONE (23:00)
[2023-09-26] MEDS: DUONEB 0.5-3 MG/3 ml Neb IH ONE (23:20)
[2023-09-27] MEDS ORDERED: MORPHINE SULFATE 2 MG INJ IV PRN (00:45)
--- NOTE | 2023-09-27 04:30 | XRAY ---
CLINICAL HISTORY: [facility] COMPARISON: 09/27/2023. TECHNIQUE: CXR frontal 1 view. FINDINGS: Apllied NG tube is seen with its lower tip at the left hypochondrial region. Heart size appears normal. Inhomogeneous shadowing at the right lower zone adjacent to the right heart border. Obscuration of right costophrenic angle. A small round opacity at the left costophrenic angle. Visualized bones are intact. IMPRESSION: Apllied NG tube is seen with its lower tip at the left hypochondrial region, satisfactory in position. The rest of the findings are stable. Electronically Signed by: Irma Duran MD. (09/27/2023 04:25:12 EDT)
[2023-09-27 04:34] LABS: Absolute Neutrophil Ct (ANC) 11.17 x10^3/uL (1.4-6.9); BASOPHIL % 0.2 % (0.0-0.4); Basophil (Absolute #) 0.02 x10^3/uL (0-0.4); Eosinophil % 0.2 % (0.00-5.0); Eosinophil (Absolute #) 0.02 x10^3/uL (0-0.5); Hematocrit 30.7 % (35-47); Hemoglobin 10.6 g/dL (12.0-16.0); IMMATURE GRAN # 0.06 x10^3u/L (0.00-0.03); IMMATURE GRAN % 0.5 % (0.00-0.4); Lymphocyte (Absolute #) 0.77 x10^3/uL (1.0-4.6); Mean Cell Volume 91.6 fL (78-100); Mean Corpuscular Hemoglobin 31.6 pg (26-32); Mean Corpuscular Hgb Concent. 34.5 g/dL (32-36); Mean Platelet Volume 10.6 fL (7.5-11.0); Monocyte (Absolute #) 0.86 x10^3/uL (0.0-1.3); Monocytes % 6.7 % (0.0-12.0); Neutrophil % 86.4 % (36.0-66.0); Platelet Count 207 x10^3/uL (150-450); Red Blood Count 3.35 x10^6/uL (4.1-5.4); Red Cell Distribution Width 12.1 % (11.5-14.0); White Blood Count 12.9 x10^3/uL (4.0-10.5)
[2023-09-27 04:48] LABS: ALBUMIN 3.3 g/dL (3.5-5.0); ANION GAP 9.9 MEQ/L (5-15); Calcium 8.9 mg/dL (8.4-10.2); Creatinine 1 0.51 mg/dL (0.52-1.04); EST GLOMERULAR FILTRATION RATE 100.4 ML/MIN; Potassium 3.7 mmol/L (3.5-5.1); Total Protein 6.4 g/dL (6.3-8.2)
--- NOTE | 2023-09-27 07:53 | XRAY ---
CLINICAL HISTORY: NG tube placement COMPARISON: Same day earlier at 22: 49: 30 [address]. TECHNIQUE: CXR frontal 1 view. FINDINGS: Slight progression is noted however still, the last fenestra of the NG tube is in the lower mediastinum most likely in the lower esophagus. Need further repositioning with an approximate push of 5 to 6 cm. Heart size appears normal. Inhomogeneous shadowing at the right lower zone adjacent to the right heart border. Obscuration of right costophrenic angle. A small round opacity at the left costophrenic angle. Visualized bones are intact. IMPRESSION: 1. Slight progression is noted however still, the last fenestra of the NG tube is in the lower mediastinum most likely in the lower esophagus. Need further repositioning with an approximate push of 5 to 6 cm. 2. The rest of the findings are stable. [facility] ER was called at [phone] at 2:13 AM [facility] [address], 09/27/2023 and results were verbally communicated to ICU NurseDenise. Electronically Signed by: Irma Duran MD. (09/27/2023 03:19:11 EDT)
--- NOTE | 2023-09-27 08:38 | XRAY ---
Indication: Abdominal pain and vomiting. Comparison: Taken earlier in the day. KUB demonstrates increasing air distended small bowel loops with now paucity distal colonic bowel gas concerning for distal small bowel obstruction. No free air. Solid organs unremarkable. Osseous structures intact again with osteopenia and mildly displaced right pubic symphysis/rami fracture.
--- NOTE | 2023-09-27 08:50 | XRAY ---
Indication: Abdominal pain and vomiting. Multiple contiguous axial images obtained through the abdomen and pelvis without contrast. Comparison: None Lung bases degraded by respiration. There is mild diffuse patchy consolidating/nonconsolidating airspace disease in both lower and visualized right middle lobes with tiny left effusion. Incidental small left lower lobe calcified granuloma. Heart not enlarged. Stomach and small bowel loops are abnormally fluid distended with fluid leveling. Small bowel dilatation up to 4 cm diameter with tapering distal ileum favoring small bowel obstruction. Small pelvic free fluid presumed reactive. No free air. Mild scattered colonic fecal debris throughout with little bowel gas. Inferior right lobe liver demonstrates incidental 1.2 cm cyst versus hemangioma. Previous hysterectomy. Remaining liver, gallbladder, pancreas, spleen, adrenal glands, kidneys, ureters, and bladder are unremarkable for noncontrast exam. Aorta is normal in course and caliber. Mild splenic artery and minimal left main renal artery arteriosclerotic calcifications. Osseous structures demonstrate osteopenia, minimal/mild degenerative changes throughout thoracolumbar spine, minimal dextroscoliosis centered at L2, and minimally displaced acute fractures right pubic symphysis and superior/inferior pubic rami. Incidental bilateral pubic symphysis tacks presumed iatrogenic. Impression: 1. CT findings as detailed favoring partial distal small bowel obstruction. 2. Bibasilar consolidating/nonconsolidating airspace disease with tiny left effusion. 3. Acute fractures right pubic bones. 4. Small hepatic cyst versus hemangioma. CT liver with contrast using hemangioma protocol may yield further information if clinically warranted. 5. Chronic findings including left lower lobe calcified granuloma, arteriosclerotic disease, osteopenia, multilevel degenerative spondylosis, and scoliosis.
[2023-09-27] MEDS: Zithromax 500 MG/ 250 ML NaCl Premix 500 MG/250 ML IVPB IV SCH (11:19)
--- NOTE | 2023-09-27 11:35 | PCM.NOTE ---
Date and Time: 09/27/23 1115 Subjective Assessment: 09/25/23 is a 72 year old female with a pmhx of HTN who presented to ED 09/24/23 with complaints of right hip pain after a ground level fall at home. Patient states she was at her sons house who has a volley ball net on his asphalt driveway and her foot got caught in the net and fell to her right side. She was unable to bear weight on the right side and her pain level was 10/10 prompting her to the ED. She has a displaced right pubic rami fracture noted on imaging per ED physician read. Ortho has been consulted with recommendations for observation and pain control, no surgical intervention. She does have pain with positional changes and with weight bearing. She is going to work with PT/OT to day. She has a walker she is borrowing from a friend and it will not be available until tomorrow. Discussed pt case with Ortho. They recommend f/u in 2 -3 weeks, pain control, and PT/OT eval. Will need OP PT. She denies CP, SOB, Abd. pain, N/V/D. 09/26/23 Pt resting in bed. She is not feeling well this morning. She vomited twice and has abd bloating. She states she is vomiting because she is just unable to keep anything down. No nausea or pelvic or abd pain. KUB ordered for further eval. She is at high risk for ileus. Nursing called overnight provider and asked that alcantara cath remain d/t n/v and pain. Discussed with pt the need for alcantara to be d/c'd. She will work with PT and OT again today. She does not require immobilization and therefore needs to have removed today. Discussed with nursing as well. She can use a bed pain or bedside commode. She denies CP, SOB, abd. pain. 09/27/23 Pt resting in bed. Yesterday evening JAYNA Andre called at 181 and explained pt had vomited green bile. KUB ordered for further eval. She again called back at 18:20 and explained her abd was now hard and that she appeared worse. CT abd ordered. KUB was not needed after CT ordered but done anyway. Both did show partial small bowel obstruction. NG was placed last night, with a total of 1500ml out so far since placement. Pt states she feels better and abd is soft this morning. Surgery consulted. Na+ 124 at 4am. Most likely r/t vomiting. Also found out that RT told nursing to turn down IVF last night. This was not a provider order. Asked nursing to turn fluids to ordered rate so that sodium can be corrected properly. Pt's lung sounds are clear. She denies CP, SOB, Abd pain, N/V/D. She reports vomiting last at midnight. - Review of Systems Constitutional: Weakness, No Fever, No Chills Eyes: No Symptoms Ears, Nose, & Throat: No Symptoms Respiratory: No Cough, No Short Of Breath Cardiac: No Chest Pain, No Edema, No Syncope Abdominal/Gastrointestinal: No Abdominal Pain, No Nausea, No Vomiting, No Diarrhea Genitourinary Symptoms: No Dysuria Musculoskeletal: No Back Pain, No Neck Pain Skin: No Rash Neurological: No Dizziness, No Focal Weakness, No Sensory Changes Psychological: No Symptoms Endocrine: No Symptoms Hematologic/Lymphatic: No Symptoms Immunological/Allergic: No Symptoms Objective Exam General Appearance: no apparent distress, alert Neurologic Exam: alert, oriented x 3, cooperative, normal mood/affect, nml cerebellar function, sensation nml, No motor deficits Skin Exam: normal color, warm, dry Eye Exam: PERRL, EOMI, eyes nml inspection Ears, Nose, Throat Exam: normal ENT inspection, pharynx normal, moist mucous membranes, other (NG in place) Neck Exam: normal inspection, non-tender, supple, full range of motion Respiratory Exam: normal breath sounds, lungs clear, No respiratory distress Cardiovascular Exam: regular rate/rhythm, normal heart sounds Gastrointestinal/Abdomen Exam: soft, No tenderness, No mass Extremity Exam: normal inspection, normal range of motion Back Exam: normal inspection, normal range of motion, No CVA tenderness, No vertebral tenderness Pelvic Exam: deferred Rectal Exam: deferred Objective Data Vital Signs: Vital Signs - 24 hr Temp Pulse Resp BP Pulse Ox 09/27/23 08:04 75 18 98 09/27/23 07:00 98.3 F 94 H 18 143/67 95 09/27/23 03:00 98.6 F 90 20 174/79 90 L 09/26/23 23:20 101 H 26 H 84 L 09/26/23 23:00 97.8 F 77 19 148/78 95 09/26/23 19:59 97.8 F 79 18 148/65 97 09/26/23 19:09 96 09/26/23 18:59 98.2 F 09/26/23 16:00 95 F 77 18 138/70 94 L 09/26/23 13:46 94 L 09/26/23 11:18 95 F 77 18 138/70 95 Pain Assessment - Last Documented Pain Intensity 5 Pain Scale Used 0-10 Pain Scale Intake and Output: Intake & Output 09/24/23 09/25/23 09/26/23 09/27/23 11:59 11:59 11:59 11:59 Intake Total 3140 1884 515 Output Total 5666 534 3024 Balance 1330 1584 -905 Weight 75.3 kg Lab Results: Lab Results-Last 24 Hours 09/27/23 09/27/23 09/27/23 Range/Units 04:30 04:30 10:09 WBC 12.9 H (4.0-10.5) x10^3/uL RBC 3.35 L (4.1-5.4) x10^6/uL Hgb 10.6 L (12.0-16.0) g/dL Hct 30.7 L (35-47) % MCV 91.6 (78-100) fL MCH 31.6 (26-32) pg MCHC 34.5 (32-36) g/dL RDW 12.1 (11.5-14.0) % Plt Count 207 (150-450) x10^3/uL MPV 10.6 (7.5-11.0) fL Gran % 86.4 H (36.0-66.0) % Immature Gran % (Auto) 0.5 H (0.00-0.4) % Nucleat RBC Rel Count 0.0 (0.00-0.1) % Eos # (Auto) 0.02 (0-0.5) x10^3/uL Immature Gran # (Auto) 0.06 H (0.00-0.03) x10^3u/L Absolute Lymphs (auto) 0.77 L (1.0-4.6) x10^3/uL Absolute Monos (auto) 0.86 (0.0-1.3) x10^3/uL Absolute Nucleated RBC 0.00 (0.00-0.01) x10^3u/L Lymphocytes % 6.0 L (24.0-44.0) % Monocytes % 6.7 (0.0-12.0) % Eosinophils % 0.2 (0.00-5.0) % Basophils % 0.2 (0.0-0.4) % Absolute Granulocytes 11.17 H (1.4-6.9) x10^3/uL Basophils # 0.02 (0-0.4) x10^3/uL Sodium 124 L 125 L (135-145) mmol/L Potassium 3.7 (3.5-5.1) mmol/L Chloride 92 L (98-107) mmol/L Carbon Dioxide 25 (22-30) mmol/L Anion Gap 9.9 (5-15) MEQ/L BUN 12 (7-17) mg/dL Creatinine 0.51 L (0.52-1.04) mg/dL Estimated GFR 100.4 ML/MIN Glucose 135 H (74-106) mg/dL Calcium 8.9 (8.4-10.2) mg/dL Total Bilirubin 1.00 (0.2-1.3) mg/dL AST 26 (14-36) U/L ALT 20 (0-35) U/L Alkaline Phosphatase 66 (38-126) U/L Serum Total Protein 6.4 (6.3-8.2) g/dL Albumin 3.3 L (3.5-5.0) g/dL Radiology Exams: Radiology Procedures Category Date Time Status ABDOMEN AND PELVIS W/0 CONTRAS [CT] Stat Exams 09/26/23 18:21 Completed CHEST 1 VIEW (PORTABLE) Stat Exams 09/26/23 23:50 Taken CHEST 1 VIEW (PORTABLE) Stat Exams 09/27/23 02:24 Completed CHEST 1 VIEW (PORTABLE) Stat Exams 09/27/23 03:44 Completed CHEST 1 VIEW (PORTABLE) Urgent Exams 09/26/23 11:25 Completed KUB Routine Exams 09/26/23 08:40 Completed KUB Stat Exams 09/26/23 18:08 Completed Multi-Disciplinary Progress Notes: Multi-Disciplinary Progress Notes 09/27/23 10:53 Case Management Note by Светлана Newman S/W PATIENT- WILL HOLD FURTHER DC PLANNING AT THIS TIME. [facility] READY AND UPDATED. Initialized on 09/27/23 10:53 - END OF NOTE 09/27/23 10:52 Case Management Note by Светлана Newman HAS RECEIVED APPROVAL FROM ADMIT DATES 09/26-09/28- THEY WERE UPDATED ON PATIENT'S CURRENT STATUS Initialized on 09/27/23 10:52 - END OF NOTE 09/27/23 08:07 Respiratory Note by Aileen Beltran PT ON 10L OXYMASK AT 98%. PLACED ON ROOM AIR SATS 87% PLACED ON 3L NC SATS 94%. Initialized on 09/27/23 08:07 - END OF NOTE 09/27/23 05:52 Respiratory Note by Shahla Judd RT NOTIFIED OF DECREASED SPO2. PATIENT HAD SUSPECTED ASPIRATION AFTER VOMITING. AUDIBLE RHONCHI AND WHEEZES. INCREASED OXYGEN TO 6L NC. SPO2 RAISED TO 88%. DURING NG PLACEMENT, OXYMASK OF 10L PLACED. DUONEB GIVEN AT THAT TIME (09/26/23 2320). REMAINED ON 10L OXYMASK. SPO2 92%. RESPIRATORY DISTRESS IMPROVED. BREATH SOUNDS IMPROVED. Initialized on 09/27/23 05:52 - END OF NOTE 09/26/23 13:40 OT Plan of Care Note by Luz Marina Pisano OT Eval OT Inpatient Eval and POC Start: 09/26/23 08:00 Freq: ONCE Status: Active Protocol: Created 09/25/23 12:04 KD (Rec: 09/25/23 12:04 KD [id number]) Document 09/26/23 12:27 KA (Rec: 09/26/23 12:31 KA [id number]) OT Evaluation Cady Warren was walking on her son 's driveway where she then tripped on the [employer] net (on the ground) and fell on her right side. She was diagnosed with pubic Rami Fracture (right side), and currently limited by pain, stiffness, and overall weakness. Patient is agreeable to evaluation this date, but continues to c/o of severe nausea. Pertinent Past Medical History HTN Prior Level of Function At baseline, patient was independent with ADLS, IADLS, and retired. 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 Equipment at Home Prior to Admission Walker,Shower Chair Home Setup Tub/Shower Combination,Walk-In -Shower Date 09/26/23 Feeding WFL Grooming WFL Comment set up assist required Bathing Impaired Comment UB: mod assist LB: max assist Dressing Impaired Comment UB: min assist LB: max assist Toileting Impaired Comment Mod assist IADLS (If indicated) Homemaking,etc Impaired Bed Mobility Impaired Comment Mod assist Toilet Transfers Impaired Comment Min assist Shower Transfers Impaired Functional Transfers Impaired Comment stand-pivot t/f: min assist Range of Motion WFL Comment BUE: WFL Coordination BUE: WFL Functional Strength BUE: 4/5 MMT (generalized weakness) Functional Endurance Fair (-); patient tolerates standing for approximately 5 mintues; however, increased nausea reported requring to sit down. Cognition alert and oriented x 4; briana's reports intermittent confusion with remembering people/names during hospital stay. Pain Right pelvis pain Rest: 0/10; MVMt: 6/10 Objective Data/Standardized Assessment(s Casey Index of [place] ) with ADLS: 2/6 indiciating increased level of assistance required for ADLS. OT Plan Of Care Date of Evaluation 09/26/23 Treatment Diagnosis Right hip pain Teaching Recipient Patient Patient is Aware of Diagnosis and Yes Prognosis Patient is receptive to Plan of Care and Yes contributory towards OT goals Functional Problem List Briana presents with right hip pain, increased nause, decreased independence, and generalized weakenss limiting independence with I/ADLS. Therapuetic Interventions ADLS, therapeutic activity, therapeutic exercises Functional Goals of Treatment 1) Within 7 days, patient will complete functional transfers (including toileting) with SBA in order to safely discharge home. 2) Within 7 days, Briana will utilize a/e PRN to complete dressing tasks with SBA in order to safety discharge home . 3) Within 7 days, Briana will demonstrate independence with all HEP and discharge instructions in order to ensure safe d/c home. Frequency/Duration 5x/week Rehabilitation Potential for Goals/ Excellent Barriers to Progress Discharge Recommendations/Plan OT recommends further rehabilitation at subacute level prior to d/c home due to safety concerns and complication from pain (as result from fx) in order to faciltiate safe d/c home. Initialized on 09/26/23 13:40 - END OF NOTE 09/26/23 12:30 Case Management Note by Светлана Newman S/W [facility] AT [facility]- THEY HAVE ACCEPTED PATIENT, PENDING INSURANCE APPROVAL Initialized on 09/26/23 12:30 - END OF NOTE 09/26/23 11:31 Case Management Note by Светлана Newman PAPERWORK COMPLETE- NO LEVEL II REQUIRED. COPIES FAXED WITH REFERRAL AND PLACED ON CHART Initialized on 09/26/23 11:31 - END OF NOTE 09/26/23 11:30 Case Management Note by Светлана Newman AFTER WORKING WITH THERAPY- PATIENT AND CONSIDERING A REHAB STAY. PATIENT STILL HOPEFUL TO [place] HOME WITH [facility] BUT IF A FACILITY IS NEEDED [place] - SHE WOULD LIKE TO GO TO [facility]. WENT AHEAD AND SENT REFERRAL TO [facility] SO PRECERT CAN BE STARTED. Initialized on 09/26/23 11:30 - END OF NOTE Assessment/Plan (1) Fracture of right superior pubic ramus Current Visit: Yes Status: Acute Qualifiers: Encounter type: initial encounter Fracture type: closed Qualified Code(s): S32.511A - Fracture of superior rim of right pubis, initial encounter for closed fracture Assessment & Plan: -Ortho consulted- discussed and agree with plan of care - Narcotic pain control- PRN, PO and IV - PT/OT eval - F/u 2-3 weeks OP with ortho - Hip/Pelvis XR: AP pelvis and 2 view left and right hip demonstrates mildly displaced right pubic symphysis fracture. Elsewhere osteopenia, mild lower lumbar degenerative changes, and pubic symphysis tacks. - D/C Alcantara- placed in ER for required immobilization from trauma. - Apply ice pack PRN - weight bearing restriction per ortho - gait training BID per ortho 09/25 - alcantara d/c'd today instead of yesterday- see nursing notes for need - pain improved- d/c Dilaudid - PT/OT 09/26 - CM working on placement Code(s): S32.511A - FRACTURE OF SUPERIOR RIM OF RIGHT PUBIS, INIT FOR CLOS FX (2) Ground-level fall Current Visit: Yes Status: Acute Assessment & Plan: - noted - see above plan for Fracture of right superior pubic ramus Code(s): W18.30XA - FALL ON SAME LEVEL, UNSPECIFIED, INITIAL ENCOUNTER (3) Hyponatremia Current Visit: Yes Status: Chronic Assessment & Plan: - Pt reports chronic hyponatremia- likely SIADH - Na+ 128 - started D5NS @ 85 ml/hr - labs ordered, urine os and sodium, serum os, uric acid, and ADH - fluid restriction 1500 09/25 - Na+ 127 - +vomiting, zofran and compazine PRN - clear liquid diet - Continue IVF 09/26 - Na+ 124 at 4 AM, Na+ 125 at 10:09 - likely 2:2 vomiting and RT ordered nursing to turn down fluids last night as pt had crackles in lungs - lungs clear this AM- fluids resumed to appropriate dosing. - Q6 Na+ rechecks - Pt on 3lNC 94% this AM- was on oxymizer last night for a period of time. Code(s): E87.1 - HYPO-OSMOLALITY AND HYPONATREMIA (4) Hypertension Current Visit: Yes Status: Acute Assessment & Plan: -Stable, continue home meds Code(s): I10 - ESSENTIAL (PRIMARY) HYPERTENSION (5) Constipation Current Visit: Yes Status: Acute Assessment & Plan: - KUB XR KUB demonstrates mild air distended small bowel loops and mild diffuse colonic fecal debris. Normal rectal bowel gas. Solid organs unremarkable. No large free air. Osseous structures demonstrates osteopenia and mildly displaced comminuted right pubic symphysis/rami acute fracture - PRN Stool softeners gave - encouraged activity - + BM 09/25 Code(s): K59.00 - CONSTIPATION, UNSPECIFIED (6) UTI (urinary tract infection) Current Visit: Yes Status: Acute Assessment & Plan: - Alcantara placed on 09/23 d/t required immobilization for trauma from fall until ortho assessment. - alcantara removed 09/25 - + uti seen on UA results - urine culture - gram negative- sensitivity pending - Rocephin started IV. - + foul smelling urine. Code(s): N39.0 - URINARY TRACT INFECTION, SITE NOT SPECIFIED (7) Partial small bowel obstruction Current Visit: Yes Status: Acute Assessment & Plan: - As seen on KUB and CT abd from 09/26 - NG in place - Vomiting resolved - surgery consult VTE: SCD PPI: protonix Next of Kin: D/C plan: tomorrow Code status: full Code(s): K56.600 - PARTIAL INTESTINAL OBSTRUCTION, UNSPECIFIED TO CAUSE
[2023-09-27] MEDS: TYLENOL 325 MG PO PRN (22:08)
[2023-09-28 05:04] LABS: Absolute Neutrophil Ct (ANC) 7.03 x10^3/uL (1.4-6.9); BASOPHIL % 0.5 % (0.0-0.4); Basophil (Absolute #) 0.04 x10^3/uL (0-0.4); Eosinophil % 0.5 % (0.00-5.0); Eosinophil (Absolute #) 0.04 x10^3/uL (0-0.5); Hemoglobin 10.4 g/dL (12.0-16.0); IMMATURE GRAN # 0.04 x10^3u/L (0.00-0.03); IMMATURE GRAN % 0.5 % (0.00-0.4); Lymphocyte (Absolute #) 0.61 x10^3/uL (1.0-4.6); Lymphocytes % 7.1 % (24.0-44.0); Mean Cell Volume 92.5 fL (78-100); Mean Corpuscular Hgb Concent. 33.5 g/dL (32-36); Mean Platelet Volume 11.2 fL (7.5-11.0); Monocytes % 9.3 % (0.0-12.0); Neutrophil % 82.1 % (36.0-66.0); Platelet Count 238 x10^3/uL (150-450); Red Blood Count 3.35 x10^6/uL (4.1-5.4); Red Cell Distribution Width 12.3 % (11.5-14.0); White Blood Count 8.6 x10^3/uL (4.0-10.5)
[2023-09-28 05:23] LABS: ALBUMIN 3.3 g/dL (3.5-5.0); ANION GAP 7.9 MEQ/L (5-15); BILIRUBIN,TOTAL 0.8 mg/dL (0.2-1.3); Calcium 9.3 mg/dL (8.4-10.2); Creatinine 1 0.54 mg/dL (0.52-1.04); Potassium 3.4 mmol/L (3.5-5.1); Total Protein 6.6 g/dL (6.3-8.2)
--- NOTE | 2023-09-28 07:59 | CONS ---
CONSULT DATE: 09/27/2023 REASON FOR CONSULT: Small bowel obstruction. HISTORY: The patient had a fall and broke the pubis rami. She did well initially but then deteriorated yesterday. She had bloating and vomiting. She had a plain abdominal film suggested small bowel obstruction. She was seen and examined at the bedside. She is already looking much better. She is almost hungry. Her abdomen is soft. Urine clear. I had a juan antonio discussion concerning the pubic rami fracture. There is associated hematoma, associated swelling around some of the pelvic grooves, certainly some bruising. There is some inflammatory response. It is common to have bladder issues and/or colon issues. The colon issue is usually an ileus but small bowel is laying against this area and does not want to work. The rest of the small bowel is trying to work. They have cramping and vomiting. She has already had a urinary tract infection. IMPRESSION: The patient has quite recent pelvic femoral fracture and is having some of these issues and complications including bladder with urinary tract infection and bowel with ileus. The patient has never had a true small bowel obstruction. She has an ileus. I think this is functional disorder which is resolving. Her diet can be increased. Her activity can be increased. It looks like she is moving right through this at this point.
--- NOTE | 2023-09-28 10:01 | XRAY ---
CLINICAL HISTORY:NG tube placed/possible aspiration. COMPARISON:None. TECHNIQUES:CXR frontal 1 view. FINDINGS: The last fenestra of the NG tube is in the lower mediastinum and needs to be repositioned by pushing approximately 10 cm.. Heart size appears normal.. Inhomogeneous shadowing at the right lower zone adjacent to the right heart border.. Obscuration of right costophrenic angle.. A small round opacity at the left costophrenic angle.. IMPRESSION: The last fenestra of the NG tube is seen in the lower mediastinum and needs to be repositioned by pushing approximately 10 cm. Possible mild right pleural effusion. Ultrasound correlation is suggested. Inhomogeneous shadowing adjacent to the right heart border. Questionable pulmonary infection. Electronically Signed by: Dr. Irma Duran MD ( 09/27/2023 01:55:22 EDT)
[2023-09-28] MEDS: HALLS COUGH DROPS 5.4 MG MM PRN (11:03)
--- NOTE | 2023-09-28 13:00 | PCM.NOTE ---
Date and Time: 09/28/23 1254 Subjective Assessment: 09/25/23 is a 72 year old female with a pmhx of HTN who presented to ED 09/24/23 with complaints of right hip pain after a ground level fall at home. Patient states she was at her sons house who has a volley ball net on his asphalt driveway and her foot got caught in the net and fell to her right side. She was unable to bear weight on the right side and her pain level was 10/10 prompting her to the ED. She has a displaced right pubic rami fracture noted on imaging per ED physician read. Ortho has been consulted with recommendations for observation and pain control, no surgical intervention. She does have pain with positional changes and with weight bearing. She is going to work with PT/OT t [facility]. She has a walker she is borrowing from a friend and it will not be available until tomorrow. Discussed pt case with Ortho. They recommend f/u in 2 -3 weeks, pain control, and PT/OT eval. Will need OP PT. She denies CP, SOB, Abd. pain, N/V/D. 09/26/23 Pt resting in bed. She is not feeling well this morning. She vomited twice and has abd bloating. She states she is vomiting because she is just unable to keep anything down. No nausea or pelvic or abd pain. KUB ordered for further eval. She is at high risk for ileus. Nursing called overnight provider and asked that alcantara cath remain d/t n/v and pain. Discussed with pt the need for alcantara to be d/c'd. She will work with PT and OT again today. She does not require immobilization and therefore needs to have removed today. Discussed with nursing as well. She can use a bed pain or bedside commode. She denies CP, SOB, abd. pain. 09/27/23 Pt resting in bed. Yesterday evening JAYNA Andre called at 181 and explained pt had vomited green bile. KUB ordered for further eval. She again called back at 18:20 and explained her abd was now hard and that she appeared worse. CT abd ordered. KUB was not needed after CT ordered but done anyway. Both did show partial small bowel obstruction. NG was placed last night, with a total of 1500ml out so far since placement. Pt states she feels better and abd is soft this morning. Surgery consulted. Na+ 124 at 4am. Most likely r/t vomiting. Also found out that RT told nursing to turn down IVF last night. This was not a provider order. Asked nursing to turn fluids to ordered rate so that sodium can be corrected properly. Pt's lung sounds are clear. She denies CP, SOB, Abd pain, N/V/D. She reports vomiting last at midnight. 09/28/23 Pt sitting up in the chair today. She is feeling much better. NG came out last night and she refused for it to be replaced. GS evaluated pt no surgical needs at this time. She was also started on clear liquid diet this am by GS. She did have another small BM this AM. Na+ has improved to 132. Azithromycin added to meds yesterday for possible aspiration. She is requesting cough drops for throat soreness from NG. Lungs sounds are clear, WBC WNL. She is doing better with PT and scheduled to d/c tomorrow to rehab if able. She denies any further concerns at this time. - Review of Systems Constitutional: No Fever, No Chills Eyes: No Symptoms Ears, Nose, & Throat: No Symptoms, Throat Pain Respiratory: No Cough, No Short Of Breath Cardiac: No Chest Pain, No Edema, No Syncope Abdominal/Gastrointestinal: No Abdominal Pain, No Nausea, No Vomiting, No Diarrhea Genitourinary Symptoms: No Dysuria Musculoskeletal: No Back Pain, No Neck Pain Skin: No Rash Neurological: No Dizziness, No Focal Weakness, No Sensory Changes Psychological: No Symptoms Endocrine: No Symptoms Hematologic/Lymphatic: No Symptoms Immunological/Allergic: No Symptoms Objective Exam General Appearance: no apparent distress, alert Neurologic Exam: alert, oriented x 3, cooperative, normal mood/affect, nml cerebellar function, sensation nml, No motor deficits Skin Exam: normal color, warm, dry Eye Exam: PERRL, EOMI, eyes nml inspection Ears, Nose, Throat Exam: normal ENT inspection, pharynx normal, moist mucous membranes Neck Exam: normal inspection, non-tender, supple, full range of motion Respiratory Exam: normal breath sounds, lungs clear, No respiratory distress Cardiovascular Exam: regular rate/rhythm, normal heart sounds Gastrointestinal/Abdomen Exam: soft, normal bowel sounds (hypoactive x4), No tenderness, No mass Extremity Exam: normal inspection, limited range of motion Back Exam: normal inspection, normal range of motion, No CVA tenderness, No vertebral tenderness Pelvic Exam: deferred Rectal Exam: deferred Objective Data Vital Signs: Vital Signs - 24 hr Temp Pulse Resp BP Pulse Ox 09/28/23 11:00 96.9 F 79 16 169/74 95 09/28/23 08:09 82 16 95 09/28/23 07:00 97.9 F 91 H 16 139/64 90 L 09/28/23 03:00 98.7 F 88 20 163/72 92 L 09/27/23 23:00 97.7 F 89 18 146/69 94 L 09/27/23 19:37 87 16 95 09/27/23 19:00 98.2 F 86 18 163/93 95 09/27/23 15:00 97.7 F 96 H 18 161/80 95 Pain Assessment - Last Documented Pain Intensity 0 Pain Scale Used 0-10 Pain Scale Intake and Output: Intake & Output 09/26/23 09/27/23 09/28/23 09/29/23 11:59 11:59 11:59 11:59 Intake Total 4598 250 8022 Output Total 300 1420 100 Balance 1584 -905 1150 Lab Results: Lab Results-Last 24 Hours 09/25/23 09/26/23 09/27/23 Range/Units 17:20 04:15 16:40 WBC (4.0-10.5) x10^3/uL RBC (4.1-5.4) x10^6/uL Hgb (12.0-16.0) g/dL Hct (35-47) % MCV (78-100) fL MCH (26-32) pg MCHC (32-36) g/dL RDW (11.5-14.0) % Plt Count (150-450) x10^3/uL MPV (7.5-11.0) fL Gran % (36.0-66.0) % Immature Gran % (Auto) (0.00-0.4) % Nucleat RBC Rel Count (0.00-0.1) % Eos # (Auto) (0-0.5) x10^3/uL Immature Gran # (Auto) (0.00-0.03) x10^3u/L Absolute Lymphs (auto) (1.0-4.6) x10^3/uL Absolute Monos (auto) (0.0-1.3) x10^3/uL Absolute Nucleated RBC (0.00-0.01) x10^3u/L Lymphocytes % (24.0-44.0) % Monocytes % (0.0-12.0) % Eosinophils % (0.00-5.0) % Basophils % (0.0-0.4) % Absolute Granulocytes (1.4-6.9) x10^3/uL Basophils # (0-0.4) x10^3/uL Sodium 127 L (135-145) mmol/L Potassium (3.5-5.1) mmol/L Chloride (98-107) mmol/L Carbon Dioxide (22-30) mmol/L Anion Gap (5-15) MEQ/L BUN (7-17) mg/dL Creatinine (0.52-1.04) mg/dL Estimated GFR ML/MIN Glucose (74-106) mg/dL Serum Osmolality 264 L (280-301) mOsmol/kg Calcium (8.4-10.2) mg/dL Total Bilirubin (0.2-1.3) mg/dL AST (14-36) U/L ALT (0-35) U/L Alkaline Phosphatase (38-126) U/L Serum Total Protein (6.3-8.2) g/dL Albumin (3.5-5.0) g/dL Urine Osmolality 564 (.) mOsmol/kg 09/27/23 09/28/23 09/28/23 Range/Units 23:00 04:33 04:33 WBC 8.6 (4.0-10.5) x10^3/uL RBC 3.35 L (4.1-5.4) x10^6/uL Hgb 10.4 L (12.0-16.0) g/dL Hct 31.0 L (35-47) % MCV 92.5 (78-100) fL MCH 31.0 (26-32) pg MCHC 33.5 (32-36) g/dL RDW 12.3 (11.5-14.0) % Plt Count 238 (150-450) x10^3/uL MPV 11.2 H (7.5-11.0) fL Gran % 82.1 H (36.0-66.0) % Immature Gran % (Auto) 0.5 H (0.00-0.4) % Nucleat RBC Rel Count 0.0 (0.00-0.1) % Eos # (Auto) 0.04 (0-0.5) x10^3/uL Immature Gran # (Auto) 0.04 H (0.00-0.03) x10^3u/L Absolute Lymphs (auto) 0.61 L (1.0-4.6) x10^3/uL Absolute Monos (auto) 0.80 (0.0-1.3) x10^3/uL Absolute Nucleated RBC 0.00 (0.00-0.01) x10^3u/L Lymphocytes % 7.1 L (24.0-44.0) % Monocytes % 9.3 (0.0-12.0) % Eosinophils % 0.5 (0.00-5.0) % Basophils % 0.5 (0.0-0.4) % Absolute Granulocytes 7.03 H (1.4-6.9) x10^3/uL Basophils # 0.04 (0-0.4) x10^3/uL Sodium 129 L 132 L (135-145) mmol/L Potassium 3.4 L (3.5-5.1) mmol/L Chloride 99 (98-107) mmol/L Carbon Dioxide 28 (22-30) mmol/L Anion Gap 7.9 (5-15) MEQ/L BUN 8 (7-17) mg/dL Creatinine 0.54 (0.52-1.04) mg/dL Estimated GFR 99.0 ML/MIN Glucose 136 H (74-106) mg/dL Serum Osmolality (280-301) mOsmol/kg Calcium 9.3 (8.4-10.2) mg/dL Total Bilirubin 0.80 (0.2-1.3) mg/dL AST 23 (14-36) U/L ALT 17 (0-35) U/L Alkaline Phosphatase 68 (38-126) U/L Serum Total Protein 6.6 (6.3-8.2) g/dL Albumin 3.3 L (3.5-5.0) g/dL Urine Osmolality (.) mOsmol/kg Radiology Exams: Radiology Procedures Category Date Time Status ABDOMEN AND PELVIS W/0 CONTRAS [CT] Stat Exams 09/26/23 18:21 Completed CHEST 1 VIEW (PORTABLE) Stat Exams 09/26/23 23:50 Completed CHEST 1 VIEW (PORTABLE) Stat Exams 09/27/23 02:24 Completed CHEST 1 VIEW (PORTABLE) Stat Exams 09/27/23 03:44 Completed KUB Stat Exams 09/26/23 18:08 Completed Multi-Disciplinary Progress Notes: Multi-Disciplinary Progress Notes 09/28/23 10:51 Physical Therapy Note by Luciano(Ginger#[id number])Nelli LATE ENTRY- 09/27/23 PT. WAS SEEN BY P.T. BID FOR FUNCTIONAL MOBILITY AND GAIT TRAINING WELL LE STRENGTHENING AND ROM. PT. ASPIRATED VOMIT LAST NIGHT AND HAD TO HAVE INCREASED O2 WELL NG PLACED D/T POSSIBLE BOWEL OBSTRUCTION. PT. AGREEABLE TO WORK W/ P.T. IN BED UPON P.T. ARRIVAL TO ROOM IN A.M. RATES R GROIN AND LATERL HIP PN AT 12/26. PERFORMED SUPINE TO SIT W/ MAX ASSIST TO MOVE LES TO SIDE OF BED AND TO MOVE TRUNK TO UPRIGHT W/ HOB ELEVATED. ABLE TO SCOOT TO SIDE OF BED W/ CGA-SBA. SIT TO STAND PERFORMED W/ MIN ASSIST W/ FREQUENT V.C. TO PLACE HANDS ON BED INSTEAD OF RW TO RISE TO STAND. PT. TOOK 3-4 STEPS TO TRANSFER TO BEDSIDE RECLINER W/ MOD ASSIST. PT. HAVING DIFFICULTY W/ LATERAL WEIGHT SHIFT TO R AND L AND W/ LIFTING R LE W/ SWING PHASE OF GAIT D/T PN. MANY V.C. AND TACTILE CUES GIVEN TO PROMOTE WEIGHT SHIFT AND USE OF UES TO DECREASE PRESSURE R LE W/ SWING OF L LE. PT. PERFORMED SEATED LE EX'S OF LAQS, ANKLE PUMPS, QUAD SETS, GLUT SETS, HEEL SLIDES, AND ABD SLIDES. REQUIRES ASSIST TO PERFORM ROM EX'S R LE D/T PN AND STIFFNESS; AROM IS IMPROVED TODAY R LE HOWEVER. IN P.M. PT. PERFORMED TRANSFER FROM RECLINER TO BEDSIDE COMMODE. SAME AMOUNT OF ASSIST NOTED ABOVE. PT. SNEEZED AND NG TUBE CAME OUT. NURSE NOTIFIED AND REMOVED TUBE. THEN TRANSFERRED TO BED W/ SAME ASSIST NOTED ABOVE. PT. TENDS TO SLIDE AND ROTATE FEET IN AN EFFORT TO AVOID PICKING HER FEET UP D/T PN. PERFORMED SUPINE EX'S NOTED ABOVE UPON RETURN TO BED. CP APPLIED TO R GROIN AFTER BOTH TX SESSIONS AWAITNG SX CONSULT TO R/O BOWEL OBSTRUCTION. TO D/C TO SNF FOR REHAB WHEN STABLE. Initialized on 09/28/23 10:51 - END OF NOTE 09/28/23 09:31 Case Management Note by Светлана Newman S/W PATIENT AND - THEY BOTH STATE [facility] [place] [facility]. PATIENT REQUESTING VAN TRANSPORT SHE FEELS IT WILL BE HARD TO GET IN AND OUT OF THE CAR. WILL CHECK WITH [facility] Initialized on 09/28/23 09:31 - END OF NOTE Assessment/Plan (1) Fracture of right superior pubic ramus Current Visit: Yes Status: Acute Qualifiers: Encounter type: initial encounter Fracture type: closed Qualified Code(s): S32.511A - Fracture of superior rim of right pubis, initial encounter for closed fracture Code(s): S32.511A - FRACTURE OF SUPERIOR RIM OF RIGHT PUBIS, INIT FOR CLOS FX (2) Ground-level fall Current Visit: Yes Status: Acute Code(s): W18.30XA - FALL ON SAME LEVEL, UNSPECIFIED, INITIAL ENCOUNTER (3) Hyponatremia Current Visit: Yes Status: Chronic Code(s): E87.1 - HYPO-OSMOLALITY AND HYPONATREMIA (4) Hypertension Current Visit: Yes Status: Acute Code(s): I10 - ESSENTIAL (PRIMARY) HYPERTENSION (5) Constipation Current Visit: Yes Status: Acute Code(s): K59.00 - CONSTIPATION, UNSPECIFIED (6) UTI (urinary tract infection) Current Visit: Yes Status: Acute Code(s): N39.0 - URINARY TRACT INFECTION, SITE NOT SPECIFIED (7) Partial small bowel obstruction Current Visit: Yes Status: Acute Assessment & Plan: (1) Fracture of right superior pubic ramus Current Visit: Yes Status: Acute Qualifiers: Encounter type: initial encounter Fracture type: closed Qualified Code(s): S32.511A - Fracture of superior rim of right pubis, initial encounter for closed fracture Assessment & Plan: -Ortho consulted- discussed and agree with plan of care - Narcotic pain control- PRN, PO and IV - PT/OT eval - F/u 2-3 weeks OP with ortho - Hip/Pelvis XR: AP pelvis and 2 view left and right hip demonstrates mildly displaced right pubic symphysis fracture. Elsewhere osteopenia, mild lower lumbar degenerative changes, and pubic symphysis tacks. - D/C Alcantara- placed in ER for required immobilization from trauma. - Apply ice pack PRN - weight bearing restriction per ortho - gait training BID per ortho 09/25 - alcantara d/c'd today instead of yesterday- see nursing notes for need - pain improved- d/c Dilaudid - PT/OT 09/26 - CM working on placement 09/27 - Plan is to d/c tomorrow to [facility] if able - ROM improving Code(s): S32.511A - FRACTURE OF SUPERIOR RIM OF RIGHT PUBIS, INIT FOR CLOS FX (2) Ground-level fall Current Visit: Yes Status: Acute Assessment & Plan: - noted - see above plan for Fracture of right superior pubic ramus Code(s): W18.30XA - FALL ON SAME LEVEL, UNSPECIFIED, INITIAL ENCOUNTER (3) Hyponatremia Current Visit: Yes Status: Chronic Assessment & Plan: - Pt reports chronic hyponatremia- likely SIADH - Na+ 128 - started D5NS @ 85 ml/hr - labs ordered, urine os and sodium, serum os, uric acid, and ADH - fluid restriction 1500 09/25 - Na+ 127 - +vomiting, zofran and compazine PRN - clear liquid diet - Continue IVF 09/26 - Na+ 124 at 4 AM, Na+ 125 at 10:09 - likely 2:2 vomiting and RT ordered nursing to turn down fluids last night as pt had crackles in lungs - lungs clear this AM- fluids resumed to appropriate dosing. - Q6 Na+ rechecks - Pt on 3lNC 94% this AM- was on oxymizer last night for a period of time. 09/27 - Na+ 132 - continue IVF as not eating much Code(s): E87.1 - HYPO-OSMOLALITY AND HYPONATREMIA (4) Hypertension Current Visit: Yes Status: Acute Assessment & Plan: -Stable, continue home meds Code(s): I10 - ESSENTIAL (PRIMARY) HYPERTENSION (5) Constipation Current Visit: Yes Status: Acute Assessment & Plan: - KUB XR KUB demonstrates mild air distended small bowel loops and mild diffuse colonic fecal debris. Normal rectal bowel gas. Solid organs unremarkable. No large free air. Osseous structures demonstrates osteopenia and mildly displaced comminuted right pubic symphysis/rami acute fracture - PRN Stool softeners gave - encouraged activity - + BM 09/25, 09/26 09/27 - + BM this AM - improving Code(s): K59.00 - CONSTIPATION, UNSPECIFIED (6) UTI (urinary tract infection) Current Visit: Yes Status: Acute Assessment & Plan: - Alcantara placed on 09/23 d/t required immobilization for trauma from fall until ortho assessment. - alcantara removed 09/25 - + uti seen on UA results - urine culture - gram negative- sensitivity pending - Rocephin started IV. - + foul smelling urine. 09/27 - UC + for e-coli - continue current antibiotics Code(s): N39.0 - URINARY TRACT INFECTION, SITE NOT SPECIFIED (7) Partial small bowel obstruction Current Visit: Yes Status: Acute Assessment & Plan: - As seen on KUB and CT abd from 09/26 - NG in place - Vomiting resolved - surgery consult 09/27 - NG fell out last night- pt refused to have reinserted - GS ok with no NG- no surgery indicated - Started on Clear liquid diet this AM by GS Code(s): K56.600 - PARTIAL INTESTINAL OBSTRUCTION, UNSPECIFIED TO CAUSE Code(s): K56.600 - PARTIAL INTESTINAL OBSTRUCTION, UNSPECIFIED TO CAUSE (8) Aspiration into airway Current Visit: Yes Status: Acute Assessment & Plan: - in middle of night on 09/26 - azithromycin added - O2 dropped and oxymizer placed at 10L - throughout the day oxygen need decreased 09/27 - today RA 95% - no pneumonia seen on CXR - Will deescalate antibiotics VTE: SCD PPI: protonix Next of Kin: D/C plan: tomorrow Code status: full Code(s): T17.908A - UNSP FB IN RESP TRACT, PART UNSP CAUSING OTH INJURY, INIT
--- NOTE | 2023-09-28 15:02 | PCM.NOTE ---
Date and Time: 09/28/23 1501 Objective Data Vital Signs: Vital Signs - 24 hr Temp Pulse Resp BP Pulse Ox 09/28/23 11:00 96.9 F 79 16 169/74 95 09/28/23 08:09 82 16 95 09/28/23 07:00 97.9 F 91 H 16 139/64 90 L 09/28/23 03:00 98.7 F 88 20 163/72 92 L 09/27/23 23:00 97.7 F 89 18 146/69 94 L 09/27/23 19:37 87 16 95 09/27/23 19:00 98.2 F 86 18 163/93 95 Pain Assessment - Last Documented Pain Intensity 0 Pain Scale Used 0-10 Pain Scale Intake and Output: Intake & Output 09/26/23 09/27/23 09/28/23 09/29/23 11:59 11:59 11:59 11:59 Intake Total 8086 814 6565 120 Output Total 300 1420 100 Balance 1584 -905 1150 120 Weight 75.3 kg Lab Results: Lab Results-Last 24 Hours 09/25/23 09/26/23 09/27/23 Range/Units 17:20 04:15 16:40 WBC (4.0-10.5) x10^3/uL RBC (4.1-5.4) x10^6/uL Hgb (12.0-16.0) g/dL Hct (35-47) % MCV (78-100) fL MCH (26-32) pg MCHC (32-36) g/dL RDW (11.5-14.0) % Plt Count (150-450) x10^3/uL MPV (7.5-11.0) fL Gran % (36.0-66.0) % Immature Gran % (Auto) (0.00-0.4) % Nucleat RBC Rel Count (0.00-0.1) % Eos # (Auto) (0-0.5) x10^3/uL Immature Gran # (Auto) (0.00-0.03) x10^3u/L Absolute Lymphs (auto) (1.0-4.6) x10^3/uL Absolute Monos (auto) (0.0-1.3) x10^3/uL Absolute Nucleated RBC (0.00-0.01) x10^3u/L Lymphocytes % (24.0-44.0) % Monocytes % (0.0-12.0) % Eosinophils % (0.00-5.0) % Basophils % (0.0-0.4) % Absolute Granulocytes (1.4-6.9) x10^3/uL Basophils # (0-0.4) x10^3/uL Sodium 127 L (135-145) mmol/L Potassium (3.5-5.1) mmol/L Chloride (98-107) mmol/L Carbon Dioxide (22-30) mmol/L Anion Gap (5-15) MEQ/L BUN (7-17) mg/dL Creatinine (0.52-1.04) mg/dL Estimated GFR ML/MIN Glucose (74-106) mg/dL Serum Osmolality 264 L (280-301) mOsmol/kg Calcium (8.4-10.2) mg/dL Total Bilirubin (0.2-1.3) mg/dL AST (14-36) U/L ALT (0-35) U/L Alkaline Phosphatase (38-126) U/L Serum Total Protein (6.3-8.2) g/dL Albumin (3.5-5.0) g/dL Urine Osmolality 564 (.) mOsmol/kg 09/27/23 09/28/23 09/28/23 Range/Units 23:00 04:33 04:33 WBC 8.6 (4.0-10.5) x10^3/uL RBC 3.35 L (4.1-5.4) x10^6/uL Hgb 10.4 L (12.0-16.0) g/dL Hct 31.0 L (35-47) % MCV 92.5 (78-100) fL MCH 31.0 (26-32) pg MCHC 33.5 (32-36) g/dL RDW 12.3 (11.5-14.0) % Plt Count 238 (150-450) x10^3/uL MPV 11.2 H (7.5-11.0) fL Gran % 82.1 H (36.0-66.0) % Immature Gran % (Auto) 0.5 H (0.00-0.4) % Nucleat RBC Rel Count 0.0 (0.00-0.1) % Eos # (Auto) 0.04 (0-0.5) x10^3/uL Immature Gran # (Auto) 0.04 H (0.00-0.03) x10^3u/L Absolute Lymphs (auto) 0.61 L (1.0-4.6) x10^3/uL Absolute Monos (auto) 0.80 (0.0-1.3) x10^3/uL Absolute Nucleated RBC 0.00 (0.00-0.01) x10^3u/L Lymphocytes % 7.1 L (24.0-44.0) % Monocytes % 9.3 (0.0-12.0) % Eosinophils % 0.5 (0.00-5.0) % Basophils % 0.5 (0.0-0.4) % Absolute Granulocytes 7.03 H (1.4-6.9) x10^3/uL Basophils # 0.04 (0-0.4) x10^3/uL Sodium 129 L 132 L (135-145) mmol/L Potassium 3.4 L (3.5-5.1) mmol/L Chloride 99 (98-107) mmol/L Carbon Dioxide 28 (22-30) mmol/L Anion Gap 7.9 (5-15) MEQ/L BUN 8 (7-17) mg/dL Creatinine 0.54 (0.52-1.04) mg/dL Estimated GFR 99.0 ML/MIN Glucose 136 H (74-106) mg/dL Serum Osmolality (280-301) mOsmol/kg Calcium 9.3 (8.4-10.2) mg/dL Total Bilirubin 0.80 (0.2-1.3) mg/dL AST 23 (14-36) U/L ALT 17 (0-35) U/L Alkaline Phosphatase 68 (38-126) U/L Serum Total Protein 6.6 (6.3-8.2) g/dL Albumin 3.3 L (3.5-5.0) g/dL Urine Osmolality (.) mOsmol/kg Radiology Exams: Radiology Procedures Category Date Time Status ABDOMEN AND PELVIS W/0 CONTRAS [CT] Stat Exams 09/26/23 18:21 Completed CHEST 1 VIEW (PORTABLE) Stat Exams 09/26/23 23:50 Completed CHEST 1 VIEW (PORTABLE) Stat Exams 09/27/23 02:24 Completed CHEST 1 VIEW (PORTABLE) Stat Exams 09/27/23 03:44 Completed KUB Stat Exams 09/26/23 18:08 Completed Multi-Disciplinary Progress Notes: Multi-Disciplinary Progress Notes 09/28/23 12:59 Case Management Note by Светлана Newman WILL PLAN TO PICK PATIENT UP TOMORROW 09/28 @1400 Initialized on 09/28/23 12:59 - END OF NOTE 09/28/23 10:51 Physical Therapy Note by Luciano(Ginger#[id number])Nelli LATE ENTRY- 09/27/23 PT. WAS SEEN BY P.T. BID FOR FUNCTIONAL MOBILITY AND GAIT TRAINING WELL LE STRENGTHENING AND ROM. PT. ASPIRATED VOMIT LAST NIGHT AND HAD TO HAVE INCREASED O2 WELL NG PLACED D/T POSSIBLE BOWEL OBSTRUCTION. PT. AGREEABLE TO WORK W/ P.T. IN BED UPON P.T. ARRIVAL TO ROOM IN A.M. RATES R GROIN AND LATERL HIP PN AT 12/26. PERFORMED SUPINE TO SIT W/ MAX ASSIST TO MOVE LES TO SIDE OF BED AND TO MOVE TRUNK TO UPRIGHT W/ HOB ELEVATED. ABLE TO SCOOT TO SIDE OF BED W/ CGA-SBA. SIT TO STAND PERFORMED W/ MIN ASSIST W/ FREQUENT V.C. TO PLACE HANDS ON BED INSTEAD OF RW TO RISE TO STAND. PT. TOOK 3-4 STEPS TO TRANSFER TO BEDSIDE RECLINER W/ MOD ASSIST. PT. HAVING DIFFICULTY W/ LATERAL WEIGHT SHIFT TO R AND L AND W/ LIFTING R LE W/ SWING PHASE OF GAIT D/T PN. MANY V.C. AND TACTILE CUES GIVEN TO PROMOTE WEIGHT SHIFT AND USE OF UES TO DECREASE PRESSURE R LE W/ SWING OF L LE. PT. PERFORMED SEATED LE EX'S OF LAQS, ANKLE PUMPS, QUAD SETS, GLUT SETS, HEEL SLIDES, AND ABD SLIDES. REQUIRES ASSIST TO PERFORM ROM EX'S R LE D/T PN AND STIFFNESS; AROM IS IMPROVED TODAY R LE HOWEVER. IN P.M. PT. PERFORMED TRANSFER FROM RECLINER TO BEDSIDE COMMODE. SAME AMOUNT OF ASSIST NOTED ABOVE. PT. SNEEZED AND NG TUBE CAME OUT. NURSE NOTIFIED AND REMOVED TUBE. THEN TRANSFERRED TO BED W/ SAME ASSIST NOTED ABOVE. PT. TENDS TO SLIDE AND ROTATE FEET IN AN EFFORT TO AVOID PICKING HER FEET UP D/T PN. PERFORMED SUPINE EX'S NOTED ABOVE UPON RETURN TO BED. CP APPLIED TO R GROIN AFTER BOTH TX SESSIONS AWAITNG SX CONSULT TO R/O BOWEL OBSTRUCTION. TO D/C TO SNF FOR REHAB WHEN STABLE. Initialized on 09/28/23 10:51 - END OF NOTE 09/28/23 09:31 Case Management Note by Светлана Newman S/W PATIENT AND - THEY BOTH STATE [facility] [place] [facility]. PATIENT REQUESTING VAN TRANSPORT SHE FEELS IT WILL BE HARD TO GET IN AND OUT OF THE CAR. WILL CHECK WITH [facility] Initialized on 09/28/23 09:31 - END OF NOTE Assessment/Plan (1) Small bowel obstruction Current Visit: Yes Status: Acute Assessment & Plan: S: no acute issues overnight.no abd pain. no n/v. + flatus. + 3 small bms.lety po. o nad nonlabored resps mild dist, soft, nttp a/p: resolving psbo vs ileus. having bowel function tolerating po. -f/u 1 month in office will sign off please call if any concerns. Code(s): K56.609 - UNSP INTESTNL OBST, UNSP TO PARTIAL VERSUS COMPLETE OBST
[2023-09-28] MEDS: MAALOX ES 30 ML UNIT DOSE PO ONE (17:07)
[2023-09-29] MEDS: Tums EX 750 MG PO PRN (04:38)
[2023-09-29 04:59] LABS: Absolute Neutrophil Ct (ANC) 6.31 x10^3/uL (1.4-6.9); BASOPHIL % 0.6 % (0.0-0.4); Basophil (Absolute #) 0.05 x10^3/uL (0-0.4); Eosinophil % 1.5 % (0.00-5.0); Eosinophil (Absolute #) 0.13 x10^3/uL (0-0.5); Hematocrit 29.9 % (35-47); Hemoglobin 10.1 g/dL (12.0-16.0); IMMATURE GRAN # 0.03 x10^3u/L (0.00-0.03); IMMATURE GRAN % 0.4 % (0.00-0.4); Lymphocyte (Absolute #) 1.05 x10^3/uL (1.0-4.6); Lymphocytes % 12.4 % (24.0-44.0); Mean Cell Volume 92.6 fL (78-100); Mean Corpuscular Hemoglobin 31.3 pg (26-32); Mean Corpuscular Hgb Concent. 33.8 g/dL (32-36); Monocytes % 10.6 % (0.0-12.0); Neutrophil % 74.5 % (36.0-66.0); Platelet Count 282 x10^3/uL (150-450); Red Blood Count 3.23 x10^6/uL (4.1-5.4); Red Cell Distribution Width 12.4 % (11.5-14.0); White Blood Count 8.5 x10^3/uL (4.0-10.5)
[2023-09-29 05:13] VITALS: O2SAT 96
[2023-09-29 05:21] LABS: ALBUMIN 3.2 g/dL (3.5-5.0); ANION GAP 7.9 MEQ/L (5-15); BILIRUBIN,TOTAL 0.9 mg/dL (0.2-1.3); Calcium 9.1 mg/dL (8.4-10.2); Creatinine 1 0.53 mg/dL (0.52-1.04); EST GLOMERULAR FILTRATION RATE 99.4 ML/MIN; Potassium 3.2 mmol/L (3.5-5.1); Total Protein 6.4 g/dL (6.3-8.2)
[2023-09-29] MEDS: PHARMACY DOSING REQUEST MC ONE (08:02)
--- NOTE | 2023-09-29 11:03 | PCM.DS ---
Discharge Summary Date of Admission: 09/26/23 18:21 Date of Discharge: 09/29/23 Admitting Physician: ARELY GALLO MD Consults: Consults on Case 09/24/23 16:26 Consult Ortho ROUTINE 09/27/23 07:23 Consult Surgery ROUTINE Primary Care Provider: ROLAN OMALLEY DO Allergies Allergies benzonatate Allergy (Verified 09/24/23 12:31) meperidine [From Demerol] Adverse Reaction (Verified 09/24/23 13:31) Nausea and Vomiting Sulfa (Sulfonamide Antibiotics) Adverse Reaction (Verified 09/24/23 12:31) Hospital Summary - Hospital Course Hospital Course: 09/25/23 is a 72 year old female with a pmhx of HTN who presented to ED 09/24/23 with complaints of right hip pain after a ground level fall at home. Patient states she was at her sons house who has a volley ball net on his asphalt driveway and her foot got caught in the net and fell to her right side. She was unable to bear weight on the right side and her pain level was 10/10 prompting her to the ED. She has a displaced right pubic rami fracture noted on imaging per ED physician read. Ortho has been consulted with recommendations for observation and pain control, no surgical intervention. She does have pain with positional changes and with weight bearing. She is going to work with PT/OT today. She has a walker she is borrowing from a friend and it will not be available until tomorrow. Discussed pt case with Ortho. They recommend f/u in 2 -3 weeks, pain control, and PT/OT eval. Will need OP PT. She denies CP, SOB, A bd. pain, N/V/D. 09/26/23 Pt resting in bed. She is not feeling well this morning. She vomited twice and has abd bloating. She states she is vomiting because she is just unable to keep anything down. No nausea or pelvic or abd pain. KUB ordered for further eval. She is at high risk for ileus. Nursing called overnight provider and asked that alcantara cath remain d/t n/v and pain. Discussed with pt the need for alcantara to be d/c'd. She will work with PT and OT again today. She does not require immobili zation and therefore needs to have removed today. Discussed with nursing as well. She can use a bed pain or bedside commode. She denies CP, SOB, abd. pain. 09/27/23 Pt resting in bed. Yesterday evening Jes RN called at 181 and explained pt had vomited green bile. KUB ordered for further eval. She again called back at 18:20 and explained her abd was now hard and that she appeared worse. CT abd ordered. KUB was not needed after CT ordered but done anyway. Both did show partial small bowel obstruction. NG was placed last night, with a total of 1500ml out so far since placement. Pt states she feels better and abd is soft this morning. Surgery consulted. Na+ 124 at 4am. Most likely r/t vomiting. Also found out that RT told nursing to turn down IVF last night. This was not a provider order. Asked nursing to turn fluids to ordered rate so that sodium can be corrected properly. Pt's lung sounds are clear. She denies CP, SOB, Abd pain, N/V/D. She reports vomiting last at midnight. 09/28/23 Pt sitting up in the chair today. She is feeling much better. NG came out last night and she refused for it to be replaced. GS evaluated pt no surgical needs at this time. She was also started on clear liquid diet this am by GS. She did have another small BM this AM. Na+ has improved to 132. Azithromycin added to meds yesterday for possible aspiration. She is requesting cough drops for throat soreness from NG. Lungs sounds are clear, WBC WNL. She is doing better with PT and scheduled to d/c tomorrow to rehab if able. She denies any further concerns at this time. 09/29/23 Pt sitting up in chair. She is feeling better but c/o right knee pain and bruising. XR of right knee ordered however she refused this to be done. She had not c/o this prior to today. She did better with PT/OT today. She is scheduled to go to [facility] today for rehab and states she is ready. She denies CP, SOB , abd pain, N/V/D. - Vitals & Intake/Output Vital Signs: Vital Signs Temperature 97.6 F 09/29/23 07:59 Pulse Rate 72 09/29/23 07:59 Respiratory Rate 19 09/29/23 07:59 Blood Pressure 171/75 09/29/23 07:59 O2 Sat by Pulse Oximetry 96 09/29/23 07:59 Intake & Output: Intake & Output 09/26/23 09/27/23 09/28/23 09/29/23 11:59 11:59 11:59 11:59 Intake Total 1803 269 6153 2249 Output Total 300 1420 100 Balance 1584 -905 1150 2249 Weight 75.3 kg - Lab Result Diagrams: 09/29/23 04:25 09/29/23 04:25 Lab Results-Last 24 Hrs: Lab Results-Last 24 Hours 09/29/23 09/29/23 Range/Units 04:25 04:25 WBC 8.5 (4.0-10.5) x10^3/uL RBC 3.23 L (4.1-5.4) x10^6/uL Hgb 10.1 L (12.0-16.0) g/dL Hct 29.9 L (35-47) % MCV 92.6 (78-100) fL MCH 31.3 (26-32) pg MCHC 33.8 (32-36) g/dL RDW 12.4 (11.5-14.0) % Plt Count 282 (150-450) x10^3/uL MPV 11.0 (7.5-11.0) fL Gran % 74.5 H (36.0-66.0) % Immature Gran % (Auto) 0.4 (0.00-0.4) % Nucleat RBC Rel Count 0.0 (0.00-0.1) % Eos # (Auto) 0.13 (0-0.5) x10^3/uL Immature Gran # (Auto) 0.03 (0.00-0.03) x10^3u/L Absolute Lymphs (auto) 1.05 (1.0-4.6) x10^3/uL Absolute Monos (auto) 0.90 (0.0-1.3) x10^3/uL Absolute Nucleated RBC 0.00 (0.00-0.01) x10^3u/L Lymphocytes % 12.4 L (24.0-44.0) % Monocytes % 10.6 (0.0-12.0) % Eosinophils % 1.5 (0.00-5.0) % Basophils % 0.6 (0.0-0.4) % Absolute Granulocytes 6.31 (1.4-6.9) x10^3/uL Basophils # 0.05 (0-0.4) x10^3/uL Sodium 134 L (135-145) mmol/L Potassium 3.2 L (3.5-5.1) mmol/L Chloride 100 (98-107) mmol/L Carbon Dioxide 29 (22-30) mmol/L Anion Gap 7.9 (5-15) MEQ/L BUN 10 (7-17) mg/dL Creatinine 0.53 (0.52-1.04) mg/dL Estimated GFR 99.4 ML/MIN Glucose 115 H (74-106) mg/dL Calcium 9.1 (8.4-10.2) mg/dL Total Bilirubin 0.90 (0.2-1.3) mg/dL AST 22 (14-36) U/L ALT 18 (0-35) U/L Alkaline Phosphatase 63 (38-126) U/L Serum Total Protein 6.4 (6.3-8.2) g/dL Albumin 3.2 L (3.5-5.0) g/dL Micro Results-Entire Visit: Microbiology 09/26/23 09:52 Urine Culture - Final Catherized Escherichia Coli - Radiology Exams Ordered Rad Exams-Entire Visit: Radiology Procedures Category Date Time Status KNEE (3 VIEWS) Stat Exams 09/29/23 09:15 Ordered - Procedures and Test Procedures and Tests throughout Hospitalization: Therapy Orders & Screens 09/24/23 15:17 PT Eval & Treat ( Order) ONCE Reason for Eval:: fracture Diagnosis: right hip pain 09/24/23 16:20 OT Screen per Nursing Assess ONCE Comment: Protocol Order Physician Instructions: Greater than 3 points order OT Admission Screening Reason For Exam: Triggered on Admission Diagnosis: right hip pain Open Wound/Cellutlitis/Pressure Ulcers: No Acute Fx/ORIF/Change in wt bearing status: Yes Severe MUSCULOSKELETAL pain: Yes ADL Dysfunction: Yes Acute CVA w/Hemiparesis/Hemiplegia: No Decreased Functional Mobility/Strength: Yes Sprain/Strain: No Acute Post-op Mobility Dysfunction: No Total Points: 14 PT Screen per Nursing Assess ONCE Comment: Protocol Order Physician Instructions: Greater than 3 points order PT Admission Screenin Reason For Exam: Triggered on Admission Diagnosis: right hip pain Open Wound/Cellutlitis/Pressure Ulcers: No Acute Fx/ORIF/Change in wt bearing status: Yes Severe MUSCULOSKELETAL pain: Yes ADL Dysfunction: Yes Acute CVA w/Hemiparesis/Hemiplegia: No Decreased Functional Mobility/Strength: Yes Sprain/Strain: No Acute Post-op Mobility Dysfunction: No Total Points: 14 09/25/23 08:22 PT Gait Training BID Comment: Physician Instructions: Reason For Exam: 09/26/23 01:08 Incentive Spirometry UD Comment: Diagnosis: right hip pain 09/26/23 02:02 Oxygen Nasal Cannula 2 lpm Comment: Diagnosis: right hip pain 09/26/23 08:00 OT Eval and Treat (MD Order) ONCE Comment: Physician Instructions: Reason For Exam: Diagnosis: right hip pain 09/26/23 23:54 Respiratory Therapy Assessment DAILY Comment: Diagnosis: right hip pain Discharge Exam General Appearance: no apparent distress, alert Neurologic Exam: alert, oriented x 3, cooperative, normal mood/affect, nml cerebellar function, sensation nml, No motor deficits Eye Exam: PERRL, EOMI, eyes nml inspection Ears, Nose, Throat Exam: normal ENT inspection, pharynx normal, moist mucous membranes Neck Exam: normal inspection, non-tender, supple, full range of motion Respiratory Exam: normal breath sounds, lungs clear, No respiratory distress Cardiovascular Exam: regular rate/rhythm, normal heart sounds Gastrointestinal/Abdomen Exam: soft, No tenderness, No mass Pelvic Exam: deferred Rectal Exam: deferred Back Exam: normal inspection, normal range of motion, No CVA tenderness, No vertebral tenderness Extremity Exam: normal inspection, normal range of motion, tenderness (right knee) Skin Exam: normal color, warm, dry, other (bruising of right knee) Final Diagnosis/Problem List - Final Discharge Diagnosis/Problem (1) Fracture of right superior pubic ramus Current Visit: Yes Status: Acute Code(s): S32.511A - FRACTURE OF SUPERIOR RIM OF RIGHT PUBIS, INIT FOR CLOS FX (2) Ground-level fall Current Visit: Yes Status: Acute Code(s): W18.30XA - FALL ON SAME LEVEL, UNSPECIFIED, INITIAL ENCOUNTER (3) Hyponatremia Current Visit: Yes Status: Chronic Code(s): E87.1 - HYPO-OSMOLALITY AND HYPONATREMIA (4) Hypertension Current Visit: Yes Status: Acute Code(s): I10 - ESSENTIAL (PRIMARY) HYPERTENSION (5) Constipation Current Visit: Yes Status: Acute Code(s): K59.00 - CONSTIPATION, UNSPECIFIED (6) UTI (urinary tract infection) Current Visit: Yes Status: Acute Code(s): N39.0 - URINARY TRACT INFECTION, SITE NOT SPECIFIED (7) Partial small bowel obstruction Current Visit: Yes Status: Acute Code(s): K56.600 - PARTIAL INTESTINAL OBSTRUCTION, UNSPECIFIED TO CAUSE (8) Aspiration into airway Current Visit: Yes Status: Acute Assessment & Plan: (1) Fracture of right superior pubic ramus Current Visit: Yes Status: Acute Qualifiers: Encounter type: initial encounter Fracture type: closed Qualified Code(s): S32.511A - Fracture of superior rim of right pubis, initial encounter for closed fracture Assessment & Plan: -Ortho consulted- discussed and agree with plan of care - Narcotic pain control- PRN, PO and IV - PT/OT eval - F/u 2-3 weeks OP with ortho - Hip/Pelvis XR: AP pelvis and 2 view left and right hip demonstrates mildly displaced right pubic symphysis fracture. Elsewhere osteopenia, mild lower lumbar degenerative changes, and pubic symphysis tacks. - D/C Alcantara- placed in ER for required immobilization from trauma. - Apply ice pack PRN - weight bearing restriction per ortho - gait training BID per ortho 09/25 - alcantara d/c'd today instead of yesterday- see nursing notes for need - pain improved- d/c Dilaudid - PT/OT 09/26 - CM working on placement 09/27 - Plan is to d/c tomorrow to [facility] if able - ROM improving 09/28 - transfer to rehab today Code(s): S32.511A - FRACTURE OF SUPERIOR RIM OF RIGHT PUBIS, INIT FOR CLOS FX (2) Ground-level fall Current Visit: Yes Status: Acute Assessment & Plan: - noted - see above plan for Fracture of right superior pubic ramus 09/28 - Right knee pain- XR ordered and pt refused Code(s): W18.30XA - FALL ON SAME LEVEL, UNSPECIFIED, INITIAL ENCOUNTER (3) Hyponatremia Current Visit: Yes Status: Chronic Assessment & Plan: - Pt reports chronic hyponatremia- likely SIADH - Na+ 128 - started D5NS @ 85 ml/hr - labs ordered, urine os and sodium, serum os, uric acid, and ADH - fluid restriction 1500 09/25 - Na+ 127 - +vomiting, zofran and compazine PRN - clear liquid diet - Continue IVF 09/26 - Na+ 124 at 4 AM, Na+ 125 at 10:09 - likely 2:2 vomiting and RT ordered nursing to turn down fluids last night as pt had crackles in lungs - lungs clear this AM- fluids resumed to appropriate dosing. - Q6 Na+ rechecks - Pt on 3lNC 94% this AM- was on oxymizer last night for a period of time. 09/27 - Na+ 132 - continue IVF as not eating much Code(s): E87.1 - HYPO-OSMOLALITY AND HYPONATREMIA (4) Hypertension Current Visit: Yes Status: Acute Assessment & Plan: -Stable, continue home meds 09/28 - BP is elevated since yesterday evening and overnight- will increase amlodipine and continue OP Code(s): I10 - ESSENTIAL (PRIMARY) HYPERTENSION (5) Constipation Current Visit: Yes Status: Acute Assessment & Plan: - KUB XR KUB demonstrates mild air distended small bowel loops and mild diffuse colonic fecal debris. Normal rectal bowel gas. Solid organs unremarkable. No large free air. Osseous structures demonstrates osteopenia and mildly displaced comminuted right pubic symphysis/rami acute fracture - PRN Stool softeners gave - encouraged activity - + BM 09/25, 09/26 09/27 - + BM this AM - improving Code(s): K59.00 - CONSTIPATION, UNSPECIFIED (6) UTI (urinary tract infection) Current Visit: Yes Status: Acute Assessment & Plan: - Alcantara placed on 09/23 d/t required immobilization for trauma from fall until ortho assessment. - alcantara removed 09/25 - + uti seen on UA results - urine culture - gram negative- sensitivity pending - Rocephin started IV. - + foul smelling urine. 09/27 - UC + for e-coli - continue current antibiotics Code(s): N39.0 - URINARY TRACT INFECTION, SITE NOT SPECIFIED (7) Partial small bowel obstruction Current Visit: Yes Status: Acute Assessment & Plan: - As seen on KUB and CT abd from 09/26 - NG in place - Vomiting resolved - surgery consult 09/27 - NG fell out last night- pt refused to have reinserted - GS ok with no NG- no surgery indicated - Started on Clear liquid diet this AM by GS Code(s): K56.600 - PARTIAL INTESTINAL OBSTRUCTION, UNSPECIFIED TO CAUSE Code(s): K56.600 - PARTIAL INTESTINAL OBSTRUCTION, UNSPECIFIED TO CAUSE (8) Aspiration into airway Current Visit: Yes Status: Acute Assessment & Plan: - in middle of night on 09/26 - azithromycin added - O2 dropped and oxymizer placed at 10L - throughout the day oxygen need decreased 09/27 - today RA 95% - no pneumonia seen on CXR - Will deescalate antibiotics Code(s): T17.908A - UNSP FB IN RESP TRACT, PART UNSP CAUSING OTH INJURY, INIT - Discharge Discharge Date: 09/29/23 ([facility]) Disposition: DC TO ANY "OTHER" CARE HOME Condition: Good Prescriptions: New Cefuroxime Axetil 500 mg [Ceftin 500 mg] 500 mg PO BID 5 Days #10 tablet Amlodipine Besylate 5 mg [Norvasc 5 mg] 10 mg PO DAILY 30 Days #30 tablet Continue Metoprolol Succinate 50 mg [Toprol Xl 50 MG] 1 tab PO DAILY Losartan Potassium 50 mg [Cozaar 50 MG] 1 tab PO DAILY Amlodipine Besylate 1 tab PO DAILY Aspirin EC 81 mg [Ecotrin 81 mg] 81 mg PO DAILY Cholecalciferol (Vitamin D3) [Vitamin D3] 2,000 unit PO DAILY Additional Instructions: CARE HOME ORDERS: SOFT DIET PT/OT EVAL AND TREAT WEIGHTBEARING TOLERATED FOLLOW UP WITH ORTHO AND SURGEON SCHEDULED SEE ATTACHED MED LIST Follow up with: RANDAL RAZO DO [ACTIVE STAFF] - 10/19/23 2:00 pm () SEAN MARTINEZ [ACTIVE STAFF] - 10/05/23 11:30 am ([place] Office)
[2023-09-29] MEDS: NORVASC 5 MG PO ONE (11:45)
[2023-09-29 12:47] VITALS: BP 190/81; TEMP 97.7
[2023-09-29 14:27] VITALS: PULSE 76; RESP 18
== END 2023-09-29 14:02 | DRG 536 ==
LOC: ED 12:09 → MED SURG 14:44 → OBSVTOIN 09-26 18:21
PROVIDERS: ADMIT Internal Medicine; ATTEND Internal Medicine
DX: S32.511A Fracture of superior rim of right pubis, initial encounter for closed fracture (principal); E87.1 Hypo-osmolality and hyponatremia; N39.0 Urinary tract infection, site not specified; K56.600 Partial intestinal obstruction, unspecified as to cause; W18.30XA Fall on same level, unspecified, initial encounter; I10 Essential (primary) hypertension; K59.00 Constipation, unspecified; T17.908A Unspecified foreign body in respiratory tract, part unspecified causing other injury, initial encounter; Z79.899 Other long term (current) drug therapy
CPT/HCPCS: 36000; 36415; 51702; 71045; 73521; 74018; 74176; 80053; 81001; 83930; 83935; 84295; 84300; 84550; 84588; 85025; 87077; 87086; 87186; 94640; 94760; 94762; 96374; 96375; 97110; 97161; 97165; 97530; 99221; 99285; 99291; G0378; Q3014; J0456; J0696; J1170; J1885; J2405; J3010; A9270-GY

== ENCOUNTER 2023-10-18 13:28 | Observation (INO) | payer MEDICARE ==
[2023-10-18] MEDS ORDERED: SUBLIMAZE 100 MCG/2 ML ONE (14:03)
[2023-10-18 14:04] LABS: BASOPHIL % 0.7 % (0.0-0.4); Basophil (Absolute #) 0.07 x10^3/uL (0-0.4); Eosinophil % 0.8 % (0.00-5.0); Eosinophil (Absolute #) 0.08 x10^3/uL (0-0.5); Hematocrit 36.7 % (35-47); Hemoglobin 12.2 g/dL (12.0-16.0); IMMATURE GRAN # 0.04 x10^3u/L (0.00-0.03); IMMATURE GRAN % 0.4 % (0.00-0.4); Lymphocyte (Absolute #) 1.76 x10^3/uL (1.0-4.6); Mean Cell Volume 91.3 fL (78-100); Mean Corpuscular Hemoglobin 30.3 pg (26-32); Mean Corpuscular Hgb Concent. 33.2 g/dL (32-36); Mean Platelet Volume 10.6 fL (7.5-11.0); Monocyte (Absolute #) 1.09 x10^3/uL (0.0-1.3); Monocytes % 10.5 % (0.0-12.0); Neutrophil % 70.6 % (36.0-66.0); Platelet Count 454 x10^3/uL (150-450); Red Blood Count 4.02 x10^6/uL (4.1-5.4); Red Cell Distribution Width 12.1 % (11.5-14.0); White Blood Count 10.3 x10^3/uL (4.0-10.5)
[2023-10-18] MEDS ORDERED: Sodium Chloride 0.9% 1000 ML 1,000 ML ONE (14:04)
[2023-10-18] MEDS ORDERED: Zofran 4 MG/2 ML VIAL ONE (14:04)
[2023-10-18] MEDS ORDERED: TORAdol 30 mg Injection ONE (14:04)
[2023-10-18] MEDS: Sodium Chloride 0.9% 1000 ML 1,000 ML IV STA (14:06)
[2023-10-18] MEDS: Zofran 4 MG/2 ML VIAL IV ONE (14:07)
[2023-10-18] MEDS: SUBLIMAZE 100 MCG/2 ML IV ONE (14:08)
[2023-10-18] MEDS: TORAdol 30 mg Injection IV ONE (14:09)
--- NOTE | 2023-10-18 14:10 | ERPHSYRPT ---
- History of Present Illness Time Seen by Provider: 10/18/23 13:46 Historian: patient Exam Limitations: no limitations Patient Subjective Stated Complaint: pt here for lower abd pain since yesterday, she was recently admitted for abd issues. she aslo co some nausea and vomiting, Triage Nursing Assessment: pt alert, arrived per wc, skin w/d/p, abd soft, no edema noted, moves all ext well Physician History: This is a 72-year-old white female patient who presents to the emergency department via private vehicle with complaints of general abdominal pain with worse pain in the infraumbilical region bilaterally and associated nausea and vomiting as well as constipation. Patient was recently admitted into the hospital on 09/24/2023 and discharged on 09/29/2023. I reviewed that admission and discharge. What was found on that admission that she had a right pubic ramus fracture. She was also found to have hyponatremia. Postdischarge she has been participating in physical therapy. Yesterday she began having the above-stated symptoms. Patient denies chest pain. Patient denies shortness of breath. Patient does have a history of hypertension. During the last hospitalization patient did receive Toradol and fentanyl which she tolerated well and helped relieve her pain complaints. Patient has a history of a hysterectomy and 2 sections Timing/Duration: yesterday Activities at Onset: none Quality: cramping Abdominal Pain Onset Location: generalized abdomen, other (Worse in the infraumbilical bilateral lower) Pain Radiation: no radiation ( abdomen regions) Severity of Pain-Max: moderate Severity of Pain-Current: moderate Modifying Factors: Improves With: vomiting Associated Symptoms: loss of appetite, nausea, vomiting, other (Constipation) Previous symptoms: recently seen, recent hospitalization, recently treated Allergies/Adverse Reactions: benzonatate Allergy (Verified 10/18/23 13:49) meperidine [From Demerol] Adverse Reaction (Verified 10/18/23 13:49) Nausea and Vomiting Sulfa (Sulfonamide Antibiotics) Adverse Reaction (Verified 10/18/23 13:49) Home Medications: Amlodipine Besylate 1 tab PO DAILY 09/24/23 [History] Aspirin EC 81 mg [Ecotrin 81 mg] 81 mg PO DAILY 09/24/23 [History] Losartan Potassium 50 mg [Cozaar 50 MG] 1 tab PO DAILY 09/24/23 [History] Metoprolol Succinate 50 mg [Toprol Xl 50 MG] 1 tab PO DAILY 09/24/23 [History] Cholecalciferol (Vitamin D3) [Vitamin D3] 2,000 unit PO DAILY 09/25/23 [History] Hx Influenza Vaccination/Date Given: Yes Hx Pneumococcal Vaccination/Date Given: Yes Immunizations Up to Date: Yes Travel Risk - International Travel Have you traveled outside of the country in past 3 weeks: No - Emerging Infectious Disease Are you exhibiting symptoms associated with any current EIDs: No Symptoms: Joint Pain - Review of Systems Constitutional: No Symptoms Eyes: No Symptoms Ears, Nose, & Throat: No Symptoms Respiratory: No Symptoms Cardiac: No Symptoms Abdominal/Gastrointestinal: Abdominal Pain, Nausea, Vomiting, Constipation, Appetite Changes Genitourinary Symptoms: No Symptoms Musculoskeletal: No Symptoms Skin: No Symptoms Neurological: No Symptoms Psychological: No Symptoms Endocrine: No Symptoms Hematologic/Lymphatic: No Symptoms Immunological/Allergic: No Symptoms All Other Systems: Reviewed and Negative - Past Medical History Pertinent Past Medical History: Yes Neurological History: No Pertinent History ENT History: No Pertinent History Cardiac History: No Pertinent History, Hypertension Respiratory History: No Pertinent History Endocrine Medical History: No Pertinent History Musculoskeletal History: No Pertinent History GI Medical History: Other History: No Pertinent History Psycho-Social History: No Pertinent History Female Reproductive Disorders: No Pertinent History Other Medical History: 09/2023- intestinal issues - Past Surgical History Past Surgical History: Yes Neuro Surgical History: No Pertinent History Cardiac: No Pertinent History Respiratory: No Pertinent History Gastrointestinal: No Pertinent History Genitourinary: No Pertinent History Musculoskeletal: Orthopedic Surgery Female Surgical History: Hysterectomy, Section Other Surgical History: C- Section X 2. Bladder tuck r ramus fx 08/2023 - Social History Smoking Status: Never smoker Exposure to second hand smoke: No Drug Use: none - Nursing Vital Signs Nursing Vital Signs: Initial Vital Signs Temperature 97.2 F 10/18/23 13:46 Pulse Rate 85 10/18/23 13:46 Respiratory Rate 18 10/18/23 13:46 Blood Pressure 150/73 10/18/23 13:46 O2 Sat by Pulse Oximetry 99 10/18/23 13:46 Pain Scale Pain Intensity 5 - Physical Exam General Appearance: no apparent distress, alert, anxiety, thin Eye Exam: PERRL/EOMI, eyes nml inspection Ears, Nose, Throat Exam: normal ENT inspection, moist mucous membranes Neck Exam: normal inspection, non-tender, supple, full range of motion Respiratory Exam: normal breath sounds, lungs clear, airway intact, No chest tenderness, No respiratory distress Cardiovascular Exam: regular rate/rhythm, normal heart sounds, normal peripheral pulses Gastrointestinal/Abdomen Exam: soft, normal bowel sounds, tenderness (Mild diffuse, generalized), guarding (Mild, diffuse, generalized to palpation), No rebound Pelvic Exam: not done Rectal Exam: not done Back Exam: normal inspection, normal range of motion, No CVA tenderness, No vertebral tenderness Extremity Exam: normal inspection, normal range of motion, pelvis stable Neurologic Exam: alert, oriented x 3, cooperative, physical therapist aide II-XII nml as tested, normal mood/affect, nml cerebellar function, nml station & gait, sensation nml Skin Exam: normal color, warm, dry Lymphatic Exam: No adenopathy SpO2 Interpretation: normal SpO2: 99 O2 Delivery: Room Air - Course Nursing assessment & vital signs reviewed: Yes Ordered Tests: Active Orders 24 hr Category Date Time Status IV Insertion STAT Care 10/18/23 13:48 Active ABDOMEN AND PELVIS W/0 CONTRAS [CT] Stat Exams 10/18/23 13:50 Completed AMYLASE Stat Lab 10/18/23 13:50 Completed CBC W DIFF Stat Lab 10/18/23 13:50 Completed CMP Stat Lab 10/18/23 13:50 Completed CULTURE,URINE Stat Lab 10/18/23 13:55 Received LIPASE Stat Lab 10/18/23 13:50 Completed UA W/RFX UR CULTURE Stat Lab 10/18/23 13:55 Completed Medication Summary Discontinued Medications Generic Name Dose Route Start Last Admin Trade Name Linnette PRN Reason Stop Dose Admin Fentanyl Citrate 25 mcg 10/18/23 13:51 10/18/23 14:08 Fentanyl Citrate 100 Mcg/2 Ml* Vial IV 10/18/23 13:52 25 mcg STAT ONE Administration Fentanyl Citrate Confirm 10/18/23 14:03 Fentanyl Citrate 100 Mcg/2 Ml* Vial Administered 10/18/23 14:04 Dose 100 mcg .ROUTE .STK-MED ONE Sodium Chloride 1,000 mls @ 999 mls/hr 10/18/23 13:48 10/18/23 14:06 Sodium Chloride 0.9% 1000 Ml IV 10/18/23 14:48 999 mls/hr .Q1H1M STA Administration Sodium Chloride Confirm 10/18/23 14:04 Sodium Chloride 0.9% 1000 Ml Administered 10/18/23 14:05 Dose 1,000 mls @ ud .ROUTE .STK-MED ONE Ceftriaxone Sodium 1 gm in 100 mls @ 200 mls/hr 10/18/23 15:10 10/18/23 15:16 Rocephin 1 Gm / 100 Ml Nacl IV 10/18/23 15:39 200 ml/hr STAT ONE 200 mls/hr Administration Ceftriaxone Sodium Confirm 10/18/23 15:14 Rocephin 1 Gm / 100 Ml Nacl Administered 10/18/23 15:15 Dose 1 gm in 100 mls @ ud IV .STK-MED ONE Ketorolac Tromethamine 30 mg 10/18/23 13:51 10/18/23 14:09 Ketorolac Tromethamine 30 Mg/Ml Inj IV 10/18/23 13:52 30 mg STAT ONE Administration Ketorolac Tromethamine Confirm 10/18/23 14:04 Ketorolac Tromethamine 30 Mg/Ml Inj Administered 10/18/23 14:05 Dose 30 mg .ROUTE .STK-MED ONE Ondansetron HCl 4 mg 10/18/23 13:48 10/18/23 14:07 Ondansetron Hcl 4 Mg/2 Ml Vial IV 10/18/23 13:49 4 mg STAT ONE Administration Ondansetron HCl Confirm 10/18/23 14:04 Ondansetron Hcl 4 Mg/2 Ml Vial Administered 10/18/23 14:05 Dose 4 mg .ROUTE .STK-MED ONE Lab/Rad Data: Laboratory Result Diagrams 10/18/23 13:50 10/18/23 13:50 Laboratory Results 10/18/23 10/18/23 10/18/23 Range/Units 13:55 13:50 13:50 WBC 10.3 (4.0-10.5) x10^3/uL RBC 4.02 L (4.1-5.4) x10^6/uL Hgb 12.2 (12.0-16.0) g/dL Hct 36.7 (35-47) % MCV 91.3 (78-100) fL MCH 30.3 (26-32) pg MCHC 33.2 (32-36) g/dL RDW 12.1 (11.5-14.0) % Plt Count 454 H (150-450) x10^3/uL MPV 10.6 (7.5-11.0) fL Gran % 70.6 H (36.0-66.0) % Immature Gran % (Auto) 0.4 (0.00-0.4) % Nucleat RBC Rel Count 0.0 (0.00-0.1) % Eos # (Auto) 0.08 (0-0.5) x10^3/uL Immature Gran # (Auto) 0.04 H (0.00-0.03) x10^3u/L Absolute Lymphs (auto) 1.76 (1.0-4.6) x10^3/uL Absolute Monos (auto) 1.09 (0.0-1.3) x10^3/uL Absolute Nucleated RBC 0.00 (0.00-0.01) x10^3u/L Lymphocytes % 17.0 L (24.0-44.0) % Monocytes % 10.5 (0.0-12.0) % Eosinophils % 0.8 (0.00-5.0) % Basophils % 0.7 (0.0-0.4) % Absolute Granulocytes 7.30 H (1.4-6.9) x10^3/uL Basophils # 0.07 (0-0.4) x10^3/uL Sodium 135 (135-145) mmol/L Potassium 4.4 (3.5-5.1) mmol/L Chloride 94 L (98-107) mmol/L Carbon Dioxide 30 (22-30) mmol/L Anion Gap 15.5 H (5-15) MEQ/L BUN 17 (7-17) mg/dL Creatinine 0.66 (0.52-1.04) mg/dL Estimated GFR 94.3 ML/MIN Glucose 118 H (74-106) mg/dL Calcium 10.1 (8.4-10.2) mg/dL Total Bilirubin 1.00 (0.2-1.3) mg/dL AST 30 (14-36) U/L ALT 26 (0-35) U/L Alkaline Phosphatase 113 (38-126) U/L Serum Total Protein 7.8 (6.3-8.2) g/dL Albumin 4.3 (3.5-5.0) g/dL Amylase 50 (30-110) U/L Lipase 103 (23-300) U/L Urine Color Yellow (Yellow) Urine Appearance Cloudy A (Clear) Urine pH 7.0 (4.6-8.0) Ur Specific [place] 1.015 (1.005-1.030) Urine Protein Negative (Negative) Urine Glucose (UA) Negative (Negative) mg/dL Urine Ketones Trace A (Negative) Urine Blood Negative (Negative) Urine Nitrite Positive A (Negative) Urine Bilirubin Negative (Negative) Urine Urobilinogen 1.0 A (0.2) mg/dL Ur Leukocyte Esterase Large A (Negative) U Hyaline Cast (Auto) NONE SEEN (0-2) /LPF Urine Microscopic RBC 0-2 (0-5) /HPF Urine Microscopic WBC 51-100 A (0-5) /HPF Ur Epithelial Cells Few (None Seen) /HPF Urine Bacteria Many A (None Seen) /HPF Urine Culture Reflexed YES (NO) - Progress Progress: improved, pain not gone completely Progress Note: 10/18/23 14:08 My medical decision making and the assignment of moderate complexity to this patient's medical issue is based on review of the patient's past medical history, review of the patient's most recent hospital admission and discharge summary and workup results, review the patient's medication list, review the patient's drug allergy list, history present illness and physical findings on examination. The workup in this patient includes placement of intravenous line, fusion of normal saline, infusion of Zofran, Toradol and fentanyl, CBC, CMP, urinalysis, amylase and lipase levels. We will also perform a CAT scan of the abdomen pelvis without contrast. , Differential diagnosis includes constipation, bowel obstruction, pancreatitis, urinary tract infection, other acute, intra-abdominal and/or intrapelvic abnormality. 10/18/23 15:[address] scan of the abdomen pelvis without contrast was interpreted by the radiologist and I reviewed the impression. Pression states recurrent partial distal small bowel obstruction. Interval healing right pubic bone fractures. No free air or free fluid present. 10/18/23 15:31 I spoke with general surgeon, Dr. Bryan. I reviewed the patient history, chief complaint, physical findings on examination and workup results. Their group will perform a surgical consultation. He is wanting the hospitalist to admit this patient. We will contact to the telehospitalist for placement of this patient in observation. 10/18/23 16:[address] Villavicencio, the telehospitalist on-call. I reviewed the patient history, presenting complaint, laboratory and radiographic study results and I reviewed the discussion I had with the general surgeon on-call. He agrees to place this patient in observation. Will obtain the general surgery consultation. Will provide the patient with IV hydration and intravenous antibiotics as well as pain control and nausea control. Counseled pt/family regarding: diagnosis, need for follow-up, rad results Medical Desision Making - Independent Historian Additional History obtained from: Family - Diagnostic Testing Diagnostic test were ordered, analyzed, and reviewed by me: Yes Radiological Interpretation: Reviewed by me, Teleradiologist Report - Risk of complications The pt has a high risk of morbidity or mortality based on: Decision regarding hospitilization or escalation of hosp level of care - Departure Departure Disposition: Observation Clinical Impression: Partial small bowel obstruction, UTI (urinary tract infection) Condition: Stable Critical Care Time: No Referrals: ROLAN OMALLEY DO [Primary Care Provider] - Follow up/PCP as directed
[2023-10-18 14:11] LABS: Appearance Cloudy (Clear); Bacteria Many /HPF (None Seen); Bilirubin Negative (Negative); Blood Negative (Negative); Epithelial Cells Few /HPF (None Seen); Glucose, Urine Negative (Negative); Hyaline Casts NONE SEEN /LPF (0-2); Ketones Trace (Negative); Leukocyte Esterase Large (Negative); Nitrite Positive (Negative); Protein,Urine Dip Negative (Negative); RBC 0-2 /HPF (0-5); Specific Gravity 1.015 (1.005-1.030); WBC 51-100 /HPF (0-5)
[2023-10-18 14:14] LABS: ADD URINE CULTURE? YES (NO)
[2023-10-18 14:14] LABS: ALBUMIN 4.3 g/dL (3.5-5.0); ANION GAP 15.5 MEQ/L (5-15); Calcium 10.1 mg/dL (8.4-10.2); Creatinine 1 0.66 mg/dL (0.52-1.04); EST GLOMERULAR FILTRATION RATE 94.3 ML/MIN; Total Protein 7.8 g/dL (6.3-8.2)
[2023-10-18 14:23] LABS: Potassium 4.4 mmol/L (3.5-5.1)
--- NOTE | 2023-10-18 14:53 | XRAY ---
Indication: Pain, vomiting, and constipation. Multiple contiguous axial images obtained through abdomen and pelvis without contrast. Comparison: September 26, 2023 Lung bases now clear with stable incidental small left lower lobe calcified granuloma. Heart not enlarged. Again small hiatal hernia. Noncontrasted stomach appears nonobstructed. Jejunal and ileal bowel loops again abnormally fluid distended up to 4.3 cm diameter with fluid leveling. Distal ileum more normal in caliber. Findings again favor partial small bowel obstruction. No free fluid/air. Normal colonic bowel gas. Stable right lobe hepatic cyst versus hemangioma. Again previous hysterectomy. Remaining liver, gallbladder, pancreas, spleen, adrenal glands, kidneys, ureters, and bladder are unremarkable for noncontrast exam. Stable minimal arteriosclerotic calcifications. Osseous structures again demonstrate osteopenia, degenerative spondylosis, and mild dextroscoliosis. Interval healing right pubic bone fractures. Impression: 1. Recurrent partial distal small bowel obstruction. 2. Interval healing right pubic bone fractures. 3. Again chronic findings including left lower lobe calcified granuloma, hiatal hernia, arteriosclerotic disease, and chronic bony findings.
[2023-10-18] MEDS ORDERED: ROCEPHIN 1 GM / 100 ML NaCl 1 GM/100 ML IVPB IV ONE (15:14)
[2023-10-18] MEDS: ROCEPHIN 1 GM / 100 ML NaCl 1 GM/100 ML IVPB IV ONE (15:16)
[2023-10-18] MEDS ORDERED: SUBLIMAZE 100 MCG/2 ML IV PRN (16:58)
[2023-10-18] MEDS ORDERED: FEVERALL 650 MG PR PRN (16:58)
--- NOTE | 2023-10-18 17:26 | PCM.HP ---
History of Present Illness - Chief Complaint Chief Complaint: Partial small bowel obstruction Date: 10/18/23 History of Present Illness: is a 72 year old female with a pmhx of HTN who presented to ED 10/18/23 experiencin abdominal pain in the infraumbilical region with associated nausea and vomiting. Patient reports that the pain started yesterday around noon. Pain is cramping in character lasting about 1-2 minutes per episode. No aggravating factors. Pain was relieved with Fentanyl provided in ED. She has been passing gas and had a bowel movement yesterday and a small bowel movement today. Patient was recently admitted 09/24/23-09/29/23 for right pubic ramus fracture which did not require surgical intervention. Patient was discharged to [facility] rehab but she is now at home participating in OP physical therapy and doing well. Hip pain is controlled and she rates it at a 4/10 on numerical pain scale. Denies fever,cough, sob, cp, RODRIGUEZ, dizziness, or diarrhea. In ED vitals are stable. CT abdomen showing recurrent partial distal bowel obstruction as well as healing right pubic bone fractures. No free air/free fluid present. Lab findings remarkable for thrombocytosis with plts at 454 and UTI. Admission for partial small bowel obstruction and UTI. Surgery has been consulted and will see patient later tonight. Plan for bowel rest, IV hydration, ceftriaxone for UTI. - Review of Systems Constitutional: No Symptoms Eyes: No Symptoms Ears, Nose, & Throat: No Symptoms Respiratory: No Symptoms Cardiac: No Symptoms Abdominal/Gastrointestinal: Abdominal Pain, Nausea, Vomiting, Appetite Changes Genitourinary Symptoms: No Symptoms Musculoskeletal: Joint Pain (right hip) Skin: No Symptoms Neurological: No Symptoms Psychological: No Symptoms Endocrine: No Symptoms Hematologic/Lymphatic: No Symptoms Immunological/Allergic: No Symptoms Medications & Allergies Home Medications: Home Medication List Amlodipine Besylate 1 tab PO DAILY 09/24/23 [History Confirmed 10/18/23] Aspirin EC 81 mg [Ecotrin 81 mg] 81 mg PO DAILY 09/24/23 [History Confirmed 10/18/23] Losartan Potassium 50 mg [Cozaar 50 MG] 1 tab PO DAILY 09/24/23 [History Confirmed 10/18/23] Metoprolol Succinate 50 mg [Toprol Xl 50 MG] 1 tab PO DAILY 09/24/23 [ History Confirmed 10/18/23] Cholecalciferol (Vitamin D3) [Vitamin D3] 2,000 unit PO DAILY 09/25/23 [History Confirmed 10/18/23] Allergies/Adverse Reactions: Allergies Allergy/AdvReac Type Severity Reaction Status Date / Time benzonatate Allergy Verified 10/18/23 13:49 meperidine [From Demerol] AdvReac Nausea and Verified 10/18/23 13:49 Vomiting Sulfa (Sulfonamide AdvReac Verified 10/18/23 13:49 Antibiotics) - Past Medical History Past Medical History: Yes Neurological History: No Pertinent History ENT History: No Pertinent History Cardiac History: No Pertinent History, Hypertension Respiratory History: No Pertinent History Endocrine Medical History: No Pertinent History Musculoskelatal History: No Pertinent History GI Medical History: Other History: No Pertinent History Pyscho-Social History: No Pertinent History Reproductive Disorders: No Pertinent History Comment: 09/2023- intestinal issues - Past Surgical History Past Surgical History: Yes Neuro Surgical History: No Pertinent History Cardiac History: No Pertinent History Respiratory Surgery: No Pertinent History GI Surgical History: No Pertinent History Genitourinary Surgical Hx: No Pertinent History Musculskeletal Surgical Hx: Orthopedic Surgery Female Surgical History: Hysterectomy, Section Other Surgical History: C- Section X 2. Bladder tuck r ramus fx 08/2023 - Social History Smoking Status: Never smoker Exposure to second hand smoke: No Alcohol: None Drug Use: none - Social Determinants of Health Will the patient participate in the screening: Yes Do you worry about a steady place to live?: No Do you have any problems with any of the following?: No known problems In the past 12 months,have you had to go without utilities?: No Have you or anyone in your house had to go without enough: No Transportation Issues: No Has anyone in your support network made you feel unsafe?: No Does the patient want assistance with any of the above?: No - Physical Exam Vital Signs: Vital Signs - 24 hr Temp Pulse Resp BP BP Pulse Ox 10/18/23 16:58 97.9 F 83 16 157/74 97 10/18/23 16:42 81 16 130/69 96 10/18/23 16:16 99 10/18/23 15:30 80 18 94 L 10/18/23 14:00 141/83 10/18/23 13:46 97.2 F 85 18 150/73 99 General Appearance: no apparent distress Neurologic Exam: alert, oriented x 3, cooperative Eye Exam: PERRL/EOMI Ears, Nose, Throat Exam: moist mucous membranes Neck Exam: full range of motion Respiratory Exam: normal breath sounds, lungs clear Cardiovascular Exam: regular rate/rhythm, normal heart sounds Gastrointestinal/Abdomen Exam: tenderness (umbilical region) Pelvic Exam: not done Rectal Exam: deferred Back Exam: normal inspection Extremity Exam: normal inspection Skin Exam: normal color Results - Labs Lab/Micro Results: Lab Results-Last 24 Hours 10/18/23 10/18/23 10/18/23 Range/Units 13:50 13:50 13:55 WBC 10.3 (4.0-10.5) x10^3/uL RBC 4.02 L (4.1-5.4) x10^6/uL Hgb 12.2 (12.0-16.0) g/dL Hct 36.7 (35-47) % MCV 91.3 (78-100) fL MCH 30.3 (26-32) pg MCHC 33.2 (32-36) g/dL RDW 12.1 (11.5-14.0) % Plt Count 454 H (150-450) x10^3/uL MPV 10.6 (7.5-11.0) fL Gran % 70.6 H (36.0-66.0) % Immature Gran % (Auto) 0.4 (0.00-0.4) % Nucleat RBC Rel Count 0.0 (0.00-0.1) % Eos # (Auto) 0.08 (0-0.5) x10^3/uL Immature Gran # (Auto) 0.04 H (0.00-0.03) x10^3u/L Absolute Lymphs (auto) 1.76 (1.0-4.6) x10^3/uL Absolute Monos (auto) 1.09 (0.0-1.3) x10^3/uL Absolute Nucleated RBC 0.00 (0.00-0.01) x10^3u/L Lymphocytes % 17.0 L (24.0-44.0) % Monocytes % 10.5 (0.0-12.0) % Eosinophils % 0.8 (0.00-5.0) % Basophils % 0.7 (0.0-0.4) % Absolute Granulocytes 7.30 H (1.4-6.9) x10^3/uL Basophils # 0.07 (0-0.4) x10^3/uL Sodium 135 (135-145) mmol/L Potassium 4.4 (3.5-5.1) mmol/L Chloride 94 L (98-107) mmol/L Carbon Dioxide 30 (22-30) mmol/L Anion Gap 15.5 H (5-15) MEQ/L BUN 17 (7-17) mg/dL Creatinine 0.66 (0.52-1.04) mg/dL Estimated GFR 94.3 ML/MIN Glucose 118 H (74-106) mg/dL Calcium 10.1 (8.4-10.2) mg/dL Total Bilirubin 1.00 (0.2-1.3) mg/dL AST 30 (14-36) U/L ALT 26 (0-35) U/L Alkaline Phosphatase 113 (38-126) U/L Serum Total Protein 7.8 (6.3-8.2) g/dL Albumin 4.3 (3.5-5.0) g/dL Amylase 50 (30-110) U/L Lipase 103 (23-300) U/L Urine Color Yellow (Yellow) Urine Appearance Cloudy A (Clear) Urine pH 7.0 (4.6-8.0) Ur Specific [place] 1.015 (1.005-1.030) Urine Protein Negative (Negative) Urine Glucose (UA) Negative (Negative) mg/dL Urine Ketones Trace A (Negative) Urine Blood Negative (Negative) Urine Nitrite Positive A (Negative) Urine Bilirubin Negative (Negative) Urine Urobilinogen 1.0 A (0.2) mg/dL Ur Leukocyte Esterase Large A (Negative) U Hyaline Cast (Auto) NONE SEEN (0-2) /LPF Urine Microscopic RBC 0-2 (0-5) /HPF Urine Microscopic WBC 51-100 A (0-5) /HPF Ur Epithelial Cells Few (None Seen) /HPF Urine Bacteria Many A (None Seen) /HPF Urine Culture Reflexed YES (NO) - Radiology Impressions Radiology Exams & Impressions: Radiology Procedures Category Date Time Status ABDOMEN AND PELVIS W/0 CONTRAS [CT] Stat Exams 10/18/23 13:50 Completed Assessment/Plan (1) Partial small bowel obstruction Current Visit: Yes Status: Acute Assessment & Plan: -CT showing recurrent partial distal bowel obstruction as well as healing right pubic bone fractures. No free air/free fluid present. -Bowel rest: NPO, IVF, anti-emetics -NG if recurrent vomiting, significant -Monitor renal/lytes -Surgery consulted in ED -Pain control morphine Code(s): K56.600 - PARTIAL INTESTINAL OBSTRUCTION, UNSPECIFIED TO CAUSE (2) UTI (urinary tract infection) Current Visit: Yes Status: Acute Assessment & Plan: -UA suspicious for UTI, ceftriaxone started in ED, will continue and follow cultures Code(s): N39.0 - URINARY TRACT INFECTION, SITE NOT SPECIFIED (3) Hypertension Current Visit: No Status: Acute Assessment & Plan: -stable continue home meds VTE: bilateral scd pending surgical consult Dispo 1-2 days Code(s): I10 - ESSENTIAL (PRIMARY) HYPERTENSION Telemedicine Encounter - Telemedicine Encounter Telemedicine Encounter: The entirety of this encounter was performed via Telemedicine"
[2023-10-18] MEDS ORDERED: TYLENOL 325 MG PO PRN (17:42)
[2023-10-18] MEDS: Sodium Chloride 0.9% 1000 ML 1,000 ML IV SCH (17:59)
[2023-10-18] MEDS: Zofran 4 MG/2 ML VIAL IV PRN (18:05)
[2023-10-18] MEDS: MORPHINE SULFATE 2 MG INJ IV PRN (21:40)
[2023-10-19 04:42] LABS: Absolute Neutrophil Ct (ANC) 3.45 x10^3/uL (1.4-6.9); Basophil (Absolute #) 0.06 x10^3/uL (0-0.4); Eosinophil (Absolute #) 0.24 x10^3/uL (0-0.5); Hematocrit 29.9 % (35-47); Hemoglobin 9.8 g/dL (12.0-16.0); IMMATURE GRAN # 0.02 x10^3u/L (0.00-0.03); IMMATURE GRAN % 0.3 % (0.00-0.4); Lymphocyte (Absolute #) 1.52 x10^3/uL (1.0-4.6); Lymphocytes % 25.1 % (24.0-44.0); Mean Cell Volume 93.4 fL (78-100); Mean Corpuscular Hemoglobin 30.6 pg (26-32); Mean Corpuscular Hgb Concent. 32.8 g/dL (32-36); Mean Platelet Volume 10.6 fL (7.5-11.0); Monocyte (Absolute #) 0.76 x10^3/uL (0.0-1.3); Monocytes % 12.6 % (0.0-12.0); Platelet Count 301 x10^3/uL (150-450); Red Cell Distribution Width 12.4 % (11.5-14.0); White Blood Count 6.1 x10^3/uL (4.0-10.5)
[2023-10-19 05:05] LABS: ALBUMIN 3.3 g/dL (3.5-5.0); ANION GAP 7.6 MEQ/L (5-15); BILIRUBIN,TOTAL 0.7 mg/dL (0.2-1.3); Calcium 8.6 mg/dL (8.4-10.2); Creatinine 1 0.71 mg/dL (0.52-1.04); EST GLOMERULAR FILTRATION RATE 91.4 ML/MIN; Potassium 3.4 mmol/L (3.5-5.1)
--- NOTE | 2023-10-19 07:42 | CONS ---
CONSULT DATE: 10/18/2023 REASON FOR CONSULT: Partial small bowel obstruction. HISTORY: The patient is 72 years old with sudden onset of abdominal pain, which started yesterday cramping in nature. She denies any nausea, vomiting or diarrhea. The patient had a small bowel movement yesterday and a little bit today, passing a little bit of gas. The patient also had a urinary tract infection and has been admitted for observation. PAST MEDICAL HISTORY: Positive for hypertension PAST SURGICAL HISTORY: She has had a section in the past, hysterectomy. She denies any cardiovascular or neurology symptoms. PHYSICAL EXAMINATION: She is alert and oriented. HEENT: Pupils are equal and normoreactive. NECK: Supple. COR: Regular rhythm. ABDOMEN: Soft, nontender at this point. EXTREMITIES: Within normal limits with no pedal edema. IMPRESSION: Partial small bowel obstruction possibility of a mild ileus associated with the urinary tract infection. At this point in time no immediate surgical intervention is needed. Will rest the bowel tonight. The patient denies any nausea or vomiting so no nasogastric tube is necessary at this time. We allowed ice chips at the moment and then obtain a KUB in the a.m.
--- NOTE | 2023-10-19 09:17 | XRAY ---
Indication: Partial small bowel obstruction. Comparison: September 26, 2023 KUB again demonstrates mild air distended small bowel loops up to 4 cm diameter. Normal colonic bowel gas. Findings favor recent CT proven partial small bowel obstruction. No free air. Solid organs unremarkable. Osseous structures again demonstrates osteopenia and mildly displaced right pubic bone fractures.
[2023-10-19] MEDS ORDERED: NON-FORMULARY ITEM (Cholecalciferol (Vitamin D3) [Vitamin D3] 50 MCG Capsule) PO SCH (10:00)
[2023-10-19] MEDS: Cozaar 50 MG PO SCH (11:13)
[2023-10-19] MEDS: NORVASC 5 MG PO SCH (11:14)
[2023-10-19] MEDS: Toprol Xl 50 MG PO SCH (11:14)
[2023-10-19] MEDS: ENOXAPARIN SODIUM SQ SCH (11:14)
[2023-10-19] MEDS: VITAMIN D PO SCH (11:14)
[2023-10-19] MEDS: ROCEPHIN 1 GM / 100 ML NaCl 1 GM/100 ML IVPB IV SCH (11:15)
--- NOTE | 2023-10-19 12:36 | PCM.NOTE ---
Date and Time: 10/19/23 1228 Subjective Assessment: is a 72 year old female with a pmhx of HTN who presented to ED 10/18/23 experiencin abdominal pain in the infraumbilical region with associated nausea and vomiting admitted with partial small bowel obstruction. Of note, patient was recently admitted 09/24/23-09/29/23 for right pubic ramus fracture which did not require surgical intervention. Patient was discharged to [facility] rehab but she is now at home participating in OP physical therapy and doing well. Surgery consulted with conservative treatment recommended. 10/19/23: Met with patient bedside. No overnight events noted. Endorses that she is passing a lot of gas, no BM yet. No further episodes of nausea/vomiting. No abdominal distention. Plans to advance diet per surgery recommendations. KUB showing redemonstration of partial small bowel obstruction. No free air. - Review of Systems Constitutional: No Symptoms Eyes: No Symptoms Ears, Nose, & Throat: No Symptoms Respiratory: No Symptoms Cardiac: No Symptoms Abdominal/Gastrointestinal: No Symptoms Genitourinary Symptoms: No Symptoms Musculoskeletal: No Symptoms Skin: No Symptoms Neurological: No Symptoms Psychological: No Symptoms Endocrine: No Symptoms Hematologic/Lymphatic: No Symptoms Immunological/Allergic: No Symptoms Objective Exam General Appearance: no apparent distress Neurologic Exam: alert, oriented x 3, cooperative Skin Exam: normal color Eye Exam: PERRL Ears, Nose, Throat Exam: moist mucous membranes Neck Exam: full range of motion Respiratory Exam: normal breath sounds, lungs clear Cardiovascular Exam: regular rate/rhythm, normal heart sounds Gastrointestinal/Abdomen Exam: soft, normal bowel sounds (BS x 4 quads) Extremity Exam: normal inspection Back Exam: normal inspection Pelvic Exam: deferred Rectal Exam: deferred Objective Data Vital Signs: Vital Signs - 24 hr Temp Pulse Resp BP BP Pulse Ox 10/19/23 11:51 97.9 F 74 16 159/70 99 10/19/23 07:19 97.3 F 73 18 127/61 98 10/19/23 04:00 98.7 F 78 18 142/65 99 10/18/23 23:40 97.3 F 82 17 139/69 95 10/18/23 19:46 98.7 F 82 17 153/68 97 10/18/23 16:59 97.9 F 83 16 157/74 97 10/18/23 16:58 97.9 F 83 16 157/74 97 10/18/23 16:42 81 16 130/69 96 10/18/23 16:16 99 10/18/23 15:30 80 18 94 L 10/18/23 14:00 141/83 10/18/23 13:46 97.2 F 85 18 150/73 99 Pain Assessment - Last Documented Pain Intensity 0 Pain Scale Used [facility] Intake and Output: Intake & Output 10/17/23 10/18/23 10/19/23 10/20/23 11:59 11:59 11:59 11:59 Intake Total 2031 Output Total 912 Balance 1119 Weight 70.2 kg Lab Results: Lab Results-Last 24 Hours 10/18/23 10/18/23 10/18/23 Range/Units 13:50 13:50 13:55 WBC 10.3 (4.0-10.5) x10^3/uL RBC 4.02 L (4.1-5.4) x10^6/uL Hgb 12.2 (12.0-16.0) g/dL Hct 36.7 (35-47) % MCV 91.3 (78-100) fL MCH 30.3 (26-32) pg MCHC 33.2 (32-36) g/dL RDW 12.1 (11.5-14.0) % Plt Count 454 H (150-450) x10^3/uL MPV 10.6 (7.5-11.0) fL Gran % 70.6 H (36.0-66.0) % Immature Gran % (Auto) 0.4 (0.00-0.4) % Nucleat RBC Rel Count 0.0 (0.00-0.1) % Eos # (Auto) 0.08 (0-0.5) x10^3/uL Immature Gran # (Auto) 0.04 H (0.00-0.03) x10^3u/L Absolute Lymphs (auto) 1.76 (1.0-4.6) x10^3/uL Absolute Monos (auto) 1.09 (0.0-1.3) x10^3/uL Absolute Nucleated RBC 0.00 (0.00-0.01) x10^3u/L Lymphocytes % 17.0 L (24.0-44.0) % Monocytes % 10.5 (0.0-12.0) % Eosinophils % 0.8 (0.00-5.0) % Basophils % 0.7 (0.0-0.4) % Absolute Granulocytes 7.30 H (1.4-6.9) x10^3/uL Basophils # 0.07 (0-0.4) x10^3/uL Sodium 135 (135-145) mmol/L Potassium 4.4 (3.5-5.1) mmol/L Chloride 94 L (98-107) mmol/L Carbon Dioxide 30 (22-30) mmol/L Anion Gap 15.5 H (5-15) MEQ/L BUN 17 (7-17) mg/dL Creatinine 0.66 (0.52-1.04) mg/dL Estimated GFR 94.3 ML/MIN Glucose 118 H (74-106) mg/dL Calcium 10.1 (8.4-10.2) mg/dL Total Bilirubin 1.00 (0.2-1.3) mg/dL AST 30 (14-36) U/L ALT 26 (0-35) U/L Alkaline Phosphatase 113 (38-126) U/L NT-Pro-B Natriuret Pep (<300) pg/mL Serum Total Protein 7.8 (6.3-8.2) g/dL Albumin 4.3 (3.5-5.0) g/dL Amylase 50 (30-110) U/L Lipase 103 (23-300) U/L Urine Color Yellow (Yellow) Urine Appearance Cloudy A (Clear) Urine pH 7.0 (4.6-8.0) Ur Specific [place] 1.015 (1.005-1.030) Urine Protein Negative (Negative) Urine Glucose (UA) Negative (Negative) mg/dL Urine Ketones Trace A (Negative) Urine Blood Negative (Negative) Urine Nitrite Positive A (Negative) Urine Bilirubin Negative (Negative) Urine Urobilinogen 1.0 A (0.2) mg/dL Ur Leukocyte Esterase Large A (Negative) U Hyaline Cast (Auto) NONE SEEN (0-2) /LPF Urine Microscopic RBC 0-2 (0-5) /HPF Urine Microscopic WBC 51-100 A (0-5) /HPF Ur Epithelial Cells Few (None Seen) /HPF Urine Bacteria Many A (None Seen) /HPF Urine Culture Reflexed YES (NO) 10/19/23 10/19/23 Range/Units 04:10 04:10 WBC 6.1 (4.0-10.5) x10^3/uL RBC 3.20 L (4.1-5.4) x10^6/uL Hgb 9.8 L (12.0-16.0) g/dL Hct 29.9 L (35-47) % MCV 93.4 (78-100) fL MCH 30.6 (26-32) pg MCHC 32.8 (32-36) g/dL RDW 12.4 (11.5-14.0) % Plt Count 301 (150-450) x10^3/uL MPV 10.6 (7.5-11.0) fL Gran % 57.0 (36.0-66.0) % Immature Gran % (Auto) 0.3 (0.00-0.4) % Nucleat RBC Rel Count 0.0 (0.00-0.1) % Eos # (Auto) 0.24 (0-0.5) x10^3/uL Immature Gran # (Auto) 0.02 (0.00-0.03) x10^3u/L Absolute Lymphs (auto) 1.52 (1.0-4.6) x10^3/uL Absolute Monos (auto) 0.76 (0.0-1.3) x10^3/uL Absolute Nucleated RBC 0.00 (0.00-0.01) x10^3u/L Lymphocytes % 25.1 (24.0-44.0) % Monocytes % 12.6 H (0.0-12.0) % Eosinophils % 4.0 (0.00-5.0) % Basophils % 1.0 (0.0-0.4) % Absolute Granulocytes 3.45 (1.4-6.9) x10^3/uL Basophils # 0.06 (0-0.4) x10^3/uL Sodium 136 (135-145) mmol/L Potassium 3.4 L D (3.5-5.1) mmol/L Chloride 106 D (98-107) mmol/L Carbon Dioxide 27 (22-30) mmol/L Anion Gap 7.6 (5-15) MEQ/L BUN 13 (7-17) mg/dL Creatinine 0.71 (0.52-1.04) mg/dL Estimated GFR 91.4 ML/MIN Glucose 98 (74-106) mg/dL Calcium 8.6 (8.4-10.2) mg/dL Total Bilirubin 0.70 (0.2-1.3) mg/dL AST 25 (14-36) U/L ALT 21 (0-35) U/L Alkaline Phosphatase 88 (38-126) U/L NT-Pro-B Natriuret Pep 398 (<300) pg/mL Serum Total Protein 6.0 L (6.3-8.2) g/dL Albumin 3.3 L (3.5-5.0) g/dL Amylase (30-110) U/L Lipase (23-300) U/L Urine Color (Yellow) Urine Appearance (Clear) Urine pH (4.6-8.0) Ur Specific [place] (1.005-1.030) Urine Protein (Negative) Urine Glucose (UA) (Negative) mg/dL Urine Ketones (Negative) Urine Blood (Negative) Urine Nitrite (Negative) Urine Bilirubin (Negative) Urine Urobilinogen (0.2) mg/dL Ur Leukocyte Esterase (Negative) U Hyaline Cast (Auto) (0-2) /LPF Urine Microscopic RBC (0-5) /HPF Urine Microscopic WBC (0-5) /HPF Ur Epithelial Cells (None Seen) /HPF Urine Bacteria (None Seen) /HPF Urine Culture Reflexed (NO) Radiology Exams: Radiology Procedures Category Date Time Status ABDOMEN AND PELVIS W/0 CONTRAS [CT] Stat Exams 10/18/23 13:50 Completed KUB Routine Exams 10/19/23 08:00 Completed Multi-Disciplinary Progress Notes: Multi-Disciplinary Progress Notes 10/19/23 09:44 Case Management Note by Fidelia Conley PATIENT HAS [facility]. THEY WERE NOTIFIED THAT PATIENT HERE OBS. THEY WILL NEED NOTIFIED AT TIME OF DC AT [phone]. THEY WILL NEED FAXED DC INSTRUCTIONS, DC MED LIST AND DC SUMMARY (IF AVAILABLE) TO [phone]. Initialized on 10/19/23 09:44 - END OF NOTE Assessment/Plan (1) Partial small bowel obstruction Current Visit: Yes Status: Acute Assessment & Plan: -CT showing recurrent partial distal bowel obstruction as well as healing right pubic bone fractures. No free air/free fluid present. -Bowel rest: NPO, IVF, anti-emetics -NG if recurrent vomiting, significant -Monitor renal/lytes -Surgery consulted in ED -Pain control morphine 5/2: -Nausea/vomiting resolved, +flatus, no BM yet -KUB with redemonstration of partial small bowel obstruction -Advance diet per surgical recs, per surgery will treat conservatively for now, no surgical intervention at this time Code(s): K56.600 - PARTIAL INTESTINAL OBSTRUCTION, UNSPECIFIED TO CAUSE (2) UTI (urinary tract infection) Current Visit: Yes Status: Acute Assessment & Plan: -UA suspicious for UTI, ceftriaxone started in ED, will continue and follow cultures 2: -Urine culture with gram - ID, on ceftriaxone, will continue and follow culture. Code(s): N39.0 - URINARY TRACT INFECTION, SITE NOT SPECIFIED (3) Hypertension Current Visit: No Status: Acute Assessment & Plan: -stable continue home meds VTE: bilateral scd pending surgical consult Dispo 1-2 days Code(s): I10 - ESSENTIAL (PRIMARY) HYPERTENSION Code(s): K56.600 - PARTIAL INTESTINAL OBSTRUCTION, UNSPECIFIED TO CAUSE (2) UTI (urinary tract infection) Current Visit: Yes Status: Acute Code(s): N39.0 - URINARY TRACT INFECTION, SITE NOT SPECIFIED (3) Hypertension Current Visit: No Status: Acute Code(s): I10 - ESSENTIAL (PRIMARY) HYPERTENSION
[2023-10-20 04:41] LABS: Absolute Neutrophil Ct (ANC) 4.39 x10^3/uL (1.4-6.9); BASOPHIL % 0.8 % (0.0-0.4); Basophil (Absolute #) 0.06 x10^3/uL (0-0.4); Hematocrit 32.3 % (35-47); Hemoglobin 10.5 g/dL (12.0-16.0); IMMATURE GRAN # 0.02 x10^3u/L (0.00-0.03); IMMATURE GRAN % 0.3 % (0.00-0.4); Lymphocyte (Absolute #) 1.49 x10^3/uL (1.0-4.6); Lymphocytes % 20.9 % (24.0-44.0); Mean Cell Volume 93.9 fL (78-100); Mean Corpuscular Hemoglobin 30.5 pg (26-32); Mean Corpuscular Hgb Concent. 32.5 g/dL (32-36); Mean Platelet Volume 10.5 fL (7.5-11.0); Monocyte (Absolute #) 0.67 x10^3/uL (0.0-1.3); Monocytes % 9.4 % (0.0-12.0); Neutrophil % 61.6 % (36.0-66.0); Platelet Count 294 x10^3/uL (150-450); Red Blood Count 3.44 x10^6/uL (4.1-5.4); Red Cell Distribution Width 12.3 % (11.5-14.0); White Blood Count 7.1 x10^3/uL (4.0-10.5)
[2023-10-20 05:18] LABS: ALBUMIN 3.4 g/dL (3.5-5.0); ANION GAP 12.9 MEQ/L (5-15); BILIRUBIN,TOTAL 0.5 mg/dL (0.2-1.3); Calcium 9.2 mg/dL (8.4-10.2); Creatinine 1 0.48 mg/dL (0.52-1.04); EST GLOMERULAR FILTRATION RATE 101.8 ML/MIN; Potassium 3.4 mmol/L (3.5-5.1); Total Protein 6.3 g/dL (6.3-8.2)
[2023-10-20] MEDS ORDERED: TYLENOL 325 MG PO PRN (07:46)
[2023-10-20] MEDS: Klor Con PO SCH (07:58)
--- NOTE | 2023-10-20 10:13 | PCM.DS ---
Discharge Summary Date of Admission: 10/18/23 16:50 Date of Discharge: 10/20/23 Admitting Physician: EDIN KRISHNAN MD Consults: Consults on Case 10/18/23 16:58 Consult Surgery ROUTINE Primary Care Provider: ROLAN OMALLEY DO Allergies Allergies benzonatate Allergy (Verified 10/18/23 13:49) meperidine [From Demerol] Adverse Reaction (Verified 10/18/23 13:49) Nausea and Vomiting Sulfa (Sulfonamide Antibiotics) Adverse Reaction (Verified 10/18/23 13:49) Hospital Summary - Hospital Course Hospital Course: is a 72 year old female with a pmhx of HTN. She presented to ED 10/18/23 experiencing abdominal pain in the umbilical region with associated nausea and vomiting admitted with partial small bowel obstruction. Of note, patient was recently admitted 09/24/23-09/29/23 for right pubic ramus fracture which did not require surgical intervention. Patient was discharged to [facility] rehab but she is now at home participating in OP physical therapy and doing well. Surgery consulted with conservative treatment recommended. On day of admission she did have a small BM. Yesterday she endorsed passing a lot of gas, w/o BM. No further episodes of nausea/vomiting since admission. Surgery advanced her diet to full liquids on 10/18. 10/18 KUB showed redemonstration of partial small bowel obstruction. No free air. Diet advanced today. She states she no longer has abd. pain and would like to go home today. K+ 3.4 and replaced today. UC + for ESBL, Klebsiella and antibiotics changed to Levaquin PO. If she is able to tolerable food today and able to have BM can d/c. She denies CP, SOB,a bd. pain, N/V/D. - Vitals & Intake/Output Vital Signs: Vital Signs Temperature 98.5 F 10/20/23 08:00 Pulse Rate 69 10/20/23 08:00 Respiratory Rate 18 10/20/23 08:00 Blood Pressure 153/71 10/20/23 08:00 O2 Sat by Pulse Oximetry 99 10/20/23 08:00 Intake & Output: Intake & Output 10/17/23 10/18/23 10/19/23 10/20/23 11:59 11:59 11:59 11:59 Intake Total 2030 4945 Output Total 912 Balance 1119 4988 Weight 70.2 kg 69.5 kg - Lab Result Diagrams: 10/20/23 04:24 10/20/23 16:35 Lab Results-Last 24 Hrs: Lab Results-Last 24 Hours 10/20/23 10/20/23 Range/Units 04:24 04:24 WBC 7.1 (4.0-10.5) x10^3/uL RBC 3.44 L (4.1-5.4) x10^6/uL Hgb 10.5 L (12.0-16.0) g/dL Hct 32.3 L (35-47) % MCV 93.9 (78-100) fL MCH 30.5 (26-32) pg MCHC 32.5 (32-36) g/dL RDW 12.3 (11.5-14.0) % Plt Count 294 (150-450) x10^3/uL MPV 10.5 (7.5-11.0) fL Gran % 61.6 (36.0-66.0) % Immature Gran % (Auto) 0.3 (0.00-0.4) % Nucleat RBC Rel Count 0.0 (0.00-0.1) % Eos # (Auto) 0.50 (0-0.5) x10^3/uL Immature Gran # (Auto) 0.02 (0.00-0.03) x10^3u/L Absolute Lymphs (auto) 1.49 (1.0-4.6) x10^3/uL Absolute Monos (auto) 0.67 (0.0-1.3) x10^3/uL Absolute Nucleated RBC 0.00 (0.00-0.01) x10^3u/L Lymphocytes % 20.9 L (24.0-44.0) % Monocytes % 9.4 (0.0-12.0) % Eosinophils % 7.0 H (0.00-5.0) % Basophils % 0.8 (0.0-0.4) % Absolute Granulocytes 4.39 (1.4-6.9) x10^3/uL Basophils # 0.06 (0-0.4) x10^3/uL Sodium 139 (135-145) mmol/L Potassium 3.4 L (3.5-5.1) mmol/L Chloride 105 (98-107) mmol/L Carbon Dioxide 25 (22-30) mmol/L Anion Gap 12.9 (5-15) MEQ/L BUN 6 L (7-17) mg/dL Creatinine 0.48 L (0.52-1.04) mg/dL Estimated GFR 101.8 ML/MIN Glucose 98 (74-106) mg/dL Calcium 9.2 (8.4-10.2) mg/dL Total Bilirubin 0.50 (0.2-1.3) mg/dL AST 22 (14-36) U/L ALT 21 (0-35) U/L Alkaline Phosphatase 93 (38-126) U/L Serum Total Protein 6.3 (6.3-8.2) g/dL Albumin 3.4 L (3.5-5.0) g/dL Micro Results-Entire Visit: Microbiology 10/18/23 13:55 Urine Culture - Final Urine, Void Klebsiella Pneumoniae - Radiology Exams Ordered Rad Exams-Entire Visit: Radiology Procedures Category Date Time Status ABDOMEN AND PELVIS W/0 CONTRAS [CT] Stat Exams 10/18/23 13:50 Completed KUB Routine Exams 10/19/23 08:00 Completed - Procedures and Test Procedures and Tests throughout Hospitalization: Therapy Orders & Screens 10/18/23 17:42 PT Eval & Treat ( Order) ONCE Reason for Eval:: recent hip fracture Diagnosis: Partial small bowel obstruction Discharge Exam General Appearance: no apparent distress, alert Neurologic Exam: alert, oriented x 3, cooperative, normal mood/affect, nml cerebellar function, sensation nml, No motor deficits Eye Exam: PERRL, EOMI, eyes nml inspection Ears, Nose, Throat Exam: normal ENT inspection, pharynx normal, moist mucous membranes Neck Exam: normal inspection, non-tender, supple, full range of motion Respiratory Exam: normal breath sounds, lungs clear, No respiratory distress Cardiovascular Exam: regular rate/rhythm, normal heart sounds Gastrointestinal/Abdomen Exam: soft, No tenderness, No mass Pelvic Exam: deferred Rectal Exam: deferred Back Exam: normal inspection, normal range of motion, No CVA tenderness, No vertebral tenderness Extremity Exam: normal inspection, normal range of motion Skin Exam: normal color, warm, dry Final Diagnosis/Problem List - Final Discharge Diagnosis/Problem (1) Partial small bowel obstruction Current Visit: Yes Status: Acute Assessment & Plan: -10/18/23: CT showing recurrent partial distal bowel obstruction as well as healing right pubic bone fractures. No free air/free fluid present. -Bowel rest: NPO, IVF, anti-emetics -NG if recurrent vomiting, significant -Monitor renal/lytes -Surgery consulted in ED -Pain control morphine - +BM 10/18: -Nausea/vomiting resolved, +flatus, no BM yet -KUB with redemonstration of partial small bowel obstruction -Advance diet per surgical recs, per surgery will treat conservatively for now, no surgical intervention at this time 10/19 - Diet advanced - If able to tolerate diet and +BM then ok to d/c - Denies Abd. pain, N/V/D Code(s): K56.600 - PARTIAL INTESTINAL OBSTRUCTION, UNSPECIFIED TO CAUSE (2) UTI (urinary tract infection) Current Visit: Yes Status: Acute Assessment & Plan: - ceftriaxone d/c'd - UC+ for ESBL and Klebsiella- changed to PO Levaquin - Pt has a hx of repeat UTI's. Code(s): N39.0 - URINARY TRACT INFECTION, SITE NOT SPECIFIED (3) Hypertension Current Visit: No Status: Chronic Assessment & Plan: -stable continue home meds Code(s): I10 - ESSENTIAL (PRIMARY) HYPERTENSION (4) Hypokalemia Current Visit: Yes Status: Acute Assessment & Plan: - K+ 3.4- replaced - will d/c home with meds x 3 days. Code(s): E87.6 - HYPOKALEMIA - Discharge Discharge Date: 10/20/23 Disposition: Home, Self-Care Condition: Stable Prescriptions: New Levofloxacin [Levofloxacin 500 MG Tablet] 750 mg PO DAILY 5 Days #5 tablet Potassium Chloride 20 meq PO BID 3 Days #6 tablet Continue Metoprolol Succinate 50 mg [Toprol Xl 50 MG] 1 tab PO DAILY Losartan Potassium 50 mg [Cozaar 50 MG] 1 tab PO DAILY Amlodipine Besylate 1 tab PO DAILY Aspirin EC 81 mg [Ecotrin 81 mg] 81 mg PO DAILY Cholecalciferol (Vitamin D3) [Vitamin D3] 2,000 unit PO DAILY Follow up with: ROLAN OMALLEY DO [Primary Care Provider] - 10/26/23 10:00 am
[2023-10-20] MEDS: Levofloxacin 500 MG Tablet PO SCH (10:33)
[2023-10-21 00:08] VITALS: BP 143/86; PULSE 76; RESP 17; TEMP 97.9; O2SAT 97
[2023-10-21] MEDS ORDERED: Levofloxacin 250MG Tablet PO SCH (10:00)
== END 2023-10-21 03:52 | disposition home or self-care (01) ==
LOC: ED 13:28 → MED SURG 16:50
PROVIDERS: ADMIT Internal Medicine; ATTEND Internal Medicine
DX: K56.600 Partial intestinal obstruction, unspecified as to cause (principal); N39.0 Urinary tract infection, site not specified; I10 Essential (primary) hypertension; E87.6 Hypokalemia; Z79.899 Other long term (current) drug therapy
CPT/HCPCS: 36000; 36415; 74018; 74176; 80053; 81001; 82150; 83690; 83880; 84132; 85025; 87077; 87086; 87186; 96360; 96365; 96374; 96375; 97161; 99285; G0378; Q3014; J0696; J1650; J1885; J2270; J2405; J3010; A9270-GY